=== PATIENT | male | born 1970 | race Caucasian/White ===

== ENCOUNTER 2020-03-30 10:32 | Inpatient (IN) | payer SELFPAY ==
[2020-03-30] VITALS (20 sets, daily range): BP systolic 125–167; BP diastolic 68–104; PULSE 70–116; RESP 13–24; TEMP 36.5–36.9; O2SAT 95–99; BMI 29.8
--- NOTE | 2020-03-30 10:42 | ECG_ITS ---
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 Measurements Intervals [place] Rate: 79 P: 57 IA: 124 QRS: 73 QRSD: 81 T: 21 QT: 363 QTc: 418 Interpretive Statements SINUS RHYTHM No previous ECG available for comparison Electronically Signed On 03-30-2020 21:45:54 CDT by Nick Munoz M.D. [id number]
--- NOTE | 2020-03-30 10:42 | ED_ITS ---
HPI - Chest Pain General: Chief Complaint: Chest Pain Stated Complaint: CHEST PAIN Time Seen by Provider: 03/30/20 10:36 History of Present Illness: HPI narrative: 49-year-old male patient presents to the emergency department as direct admission from [facility]. He reports developed chest pain/back pain went to the emergency department around 230 this a.m. cardiac work-up with elevated troponin 33 at the first, second 53; he reports EKGs were normal, he did receive 80 mg of Lovenox and 324 mg of aspirin. He denies cough congestion, nausea vomiting diarrhea or fever, Covid symptoms. He reports back pain, scale of 2 out of 10, reports pain is much better. 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) Associated symptoms: Reports no associated symptoms; Deny abdominal pain, diaphoresis, dyspnea, fever(s), nausea, palpitations or vomiting Treatment prior to arrival: aspirin and other (80 mg Lovenox) Review of Systems General: Reports: 10 or more systems reviewed and unremarkable except in HPI and below Const: Denies: fever(s), chills or diaphoresis Eyes: Denies: blurry vision or eye redness ENMT: Denies: throat pain, dental pain or disequilibrium Card: Denies: chest pain, palpitations or irregular heart rhythm Resp: Denies: dyspnea, productive cough, non-productive cough or wheezing GI: Denies: abdominal pain, nausea or vomiting : Denies: dysuria Musc: Reports: back pain (thoracic); Denies: neck pain, joint pain or muscle weakness Skin/Breast: Denies: rash or pruritus Neuro: Denies: headache(s), weakness in extremities or behavioral changes Omar/Lymph: Denies: easy bruising PFSH ED PFSH: Medical History (Updated 03/30/20 @ 12:04 by Kait Burnett DO) Chronic vertigo Hyperlipidemia Seasonal allergies Surgical History (Updated 03/30/20 @ 12:01 by Kait Burnett DO) History of local excision of skin lesion R shoulder Family History (Updated 03/30/20 @ 12:02 by Kait Burnett DO) Father Lung disease Secondary to asbestos exposure Mother Cancer Small cell lung cancer Social History (Updated 03/30/20 @ 12:03 by Kait Burnett DO) Smoking and tobacco status: former smoker Alcohol intake: current Alcohol intake frequency: holidays/special occasions only Substance/Drug Use: never Marital status: Physical Exam Const: COMMON NORMALS: no acute distress, patient oriented x3, healthy appearing and alert GENERAL APPEARANCE: cooperative, comfortable and well hydrated HENMT: COMMON NORMALS: normocephalic, Normal external nose present and moist oral mucous membranes HEAD & SCALP: normocephalic NOSE: Normal external nose present Eye: COMMON NORMALS: Equal, round and reactive pupils present and EOMs intact bilaterally GENERAL EYE: appearance normal, both eyes and all related structures PUPIL: Yes Equal, round and reactive pupils present Neck/C-Spine: COMMON NORMALS: full ROM and no lymphadenopathy GENERAL: Yes normal visual inspection and Yes trachea midline CERVICAL SPINE: Yes cervical ROM normal Lymph: LYMPHATIC: no lymphadenopathy noted Chest: COMMONS NORMALS: normal inspection of the chest Resp: COMMON NORMALS: normal respiratory effort and clear to auscultation bilaterally AUSCULTATION: clear to auscultation bilaterally Cardio: COMMON NORMALS: regular rhythm, S1 normal heart sound present and S2 normal heart sound present RHYTHM: regular rhythm HEART SOUNDS: S1 normal heart sound present and S2 normal heart sound present GI: COMMON NORMALS: Soft to palpation and non-tender INSPECTION: Yes normal to inspection PALPATION: Yes Soft to palpation : COMMON NORMALS: Yes no CVA tenderness BLADDER/KIDNEY EXAM: Yes no CVA tenderness Back/Pelvis: COMMON NORMALS: no CVA tenderness and thoracic and lumbar spine normal to inspection Extremity: COMMON NORMALS: normal to inspection and capillary refill normal Neuro: COMMON NORMALS: patient oriented x3 and no focal motor deficits SENSORIUM/ORIENTATION: Yes alert Psych: COMMON NORMALS: mental status grossly normal, Normal thought process present and cooperative ACTIVITY/MOTOR BEHAVIOR: Yes appropriate eye contact THOUGHT PROCESS: Normal thought process present Skin: COMMON NORMALS: no rashes or lesions noted and turgor normal GENERAL SKIN EXAM: no rashes or lesions noted and turgor normal Course ED course: 49-year-old male patient presents to the emergency department via transfer from [facility] for further evaluation of back pain/increased troponin levels. Negative Covid symptoms here in the ED. Covid screening not indicated since he does not exhibit symptoms of illness. Case discussed with Dr. Briseno. Dr. Burnett here in the ED evaluating patient for admission. Vital Signs: Vital signs: Vital Signs Temperature 97.7 F 03/30/20 14:38 Pulse Rate 77 03/30/20 14:38 Respiratory Rate 16 03/30/20 14:59 Blood Pressure 129/81 03/30/20 14:38 Pulse Oximetry 98 03/30/20 14:59 MDM - Chest Pain Lab Data: Labs: Lab Results 03/30/20 03/30/20 03/30/20 Range/Units 11:00 11:00 11:35 PT (12.1-14.9) SECO NDS INR (0.8-1.2) Sodium Cancelled 139 Potassium Cancelled 4.1 Chloride Cancelled 105 Carbon Dioxide Cancelled 24 Anion Gap Cancelled 14.1 BUN Cancelled 10 Creatinine Cancelled 0.7 GFR Calculation Cancelled 119.9 Glucose Cancelled 115 Calculated Osmolal ity Cancelled 288 Calcium Cancelled 9.3 Troponin T Gen 5 n g/L Cancelled TSH (0.27-4.20) uIU/ mL 03/30/20 03/30/20 03/30/20 Range/Units 11:35 11:35 11:35 PT 12.90 (12.1-14.9) SECO NDS INR 0.94 (0.8-1.2) Sodium Potassium Chloride Carbon Dioxide Anion Gap BUN Creatinine GFR Calculation Glucose Calculated Osmolal ity Calcium Troponin T Gen 5 n g/L 241 H* TSH 1.04 (0.27-4.20) uIU/ mL EKG Data^: EKG 1: EKG interpretation date: 03/30/20 EKG interpretation time: 10:53 Other EKG comments: Sinus rhythm, normal ECG Discharge Plan Discharge Patient Disposition: Admitted As Inpatient Admit Provider: Kait Burnett Discharge Date/Time: 03/30/20 14:34 Coding Level of Care Code ED Public Area Attendant for Chg Fwd Exam Comprehensive
--- NOTE | 2020-03-30 11:56 | PM.HP ---
Providers/Chief Complaint Chief Complaint: CHEST PAIN History of Present Illness Johan Pelayo is a 49 year old male with a past medical history of hyperlipidemia and vertigo that presented to the emergency department from an outside facility due to concern for non-ST elevation AL. Patient was seen and evaluated at the outside facility due to sudden onset of back pain that began last night about 2 AM. 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 Stated that before he went to sleep he had his pushed on his back, this improved some of his pain, he went to bed pain-free with no feelings of shortness of breath or chest pain. He stated that about 2 AM he woke up began having severe back pain between his shoulder blades, stated that it was very severe and due to the severe pain he came into the ER for further evaluation and treatment. He reports being fatigued with exertion over the past couple of months, he had chalked this up to his weight gain. He denies any chest heaviness or pressure, no palpitations. He noted no family history of any heart disease that he is aware of. Stated that he was told that he had high cholesterol in the past was on a statin, but could not tolerate the medication due to severe muscle cramps. Patient was seen and evaluated at [facility] emergency room and transferred to our facility due to non-ST elevation AL. Noted to have a delta troponin of 33. Review of Systems Const: Denies: fever(s) or chills Eyes: Denies: change in vision ENMT: Denies: nasal congestion Card: Denies: chest pain, palpitations or edema Resp: Denies: dyspnea, productive cough or hemoptysis GI: Denies: abdominal pain, nausea, vomiting, diarrhea, constipation, hematochezia or melena : Denies: dysuria or hematuria Musc: Reports: back pain; Denies: extremity pain or muscle cramps Skin/Breast: Denies: rash or new lesions Neuro: Reports: dizziness (Chronic, unchanged); Denies: headache(s) Psych: Denies: anxiety or depression Endo: Denies: polyuria or hot flashes Omar/Lymph: Denies: easy bruising or easy bleeding Medications/Allergies Home Medications Medication Instructions Recorded Confirmed Last Taken Type aspirin 81 mg PO QPM 03/30/20 03/30/20 Unknown History flaxseed oil-omega 3,6,9 1 cap PO DAILY 03/30/20 03/30/20 03/29/20 History loratadine 10 mg PO QPM 03/30/20 03/30/20 03/29/20 History meclizine 12.5 mg PO QAM 03/30/20 03/30/20 Unknown History multivit with min-folic acid 400 mcg PO DAILY 03/30/20 03/30/20 03/29/20 History [Adult Multivitamin Gummies] nqrfpgblf-CV-polnpkik-guaifen 1 cap PO QAM 03/30/20 03/30/20 03/29/20 History Allergies Allergy/AdvReac Type Severity Reaction Status Date / Time amoxicillin Allergy ADR-Itching Verified 03/30/20 11:19 PFSH Acute PFSH: Medical History (Updated 03/30/20 @ 12:04 by Kait Burnett DO) Chronic vertigo Hyperlipidemia Seasonal allergies Surgical History (Updated 03/30/20 @ 12:01 by Kait Burnett DO) History of local excision of skin lesion R shoulder Family History (Updated 03/30/20 @ 12:02 by Kait Burnett DO) Father Lung disease Secondary to asbestos exposure Mother Cancer Small cell lung cancer Social History (Updated 03/30/20 @ 12:03 by Kait Burnett DO) Smoking and tobacco status: former smoker Alcohol intake: current Alcohol intake frequency: holidays/special occasions only Substance/Drug Use: never Marital status: Supplemental PFSH Information: Reports that he quit smoking 1 year ago Vitals/I&O/Wt Last Vital Signs Temp 98.3 F 03/30/20 10:35 Pulse 87 03/30/20 10:42 Resp 16 03/30/20 10:42 BP 152/87 03/30/20 10:42 Pulse Ox 98 03/30/20 10:42 Weight last 48 hrs Weight 83.915 kg Physical Exam Const: COMMON NORMALS: patient oriented x3 and alert GENERAL APPEARANCE: cooperative ORIENTATION/CONSCIOUSNESS: Yes awake, Yes oriented to person, Yes oriented to place and Yes oriented to time HENMT: COMMON NORMALS: normocephalic and atraumatic HEAD & SCALP: normocephalic and atraumatic Eye: COMMON NORMALS: Equal, round and reactive pupils present PUPIL: Yes Equal, round and reactive pupils present Neck/C-Spine: COMMON NORMALS: supple GENERAL: Yes normal visual inspection Resp: COMMON NORMALS: normal respiratory effort and clear to auscultation bilaterally EFFORT & INSPECTION: Yes able to speak in complete sentences AUSCULTATION: clear to auscultation bilaterally, no rhonchi and no wheezes Cardio: COMMON NORMALS: regular rate, regular rhythm and No murmurs present (Cardio) RATE: regular rate RHYTHM: regular rhythm GI: COMMON NORMALS: Soft to palpation and non-tender INSPECTION: No abdominal distension AUSCULTATION: Yes normoactive bowel sounds PALPATION: Yes Soft to palpation : COMMON NORMALS: Yes no CVA tenderness BLADDER/KIDNEY EXAM: Yes no CVA tenderness Back/Pelvis: OTHER: No tenderness to palpation along the paraspinal muscles that reproduces back pain present on arrival to the ED Extremity: COMMON NORMALS: no clubbing, cyanosis or edema and no calf tenderness Neuro: COMMON NORMALS: patient oriented x3, CN's II-XII intact bilaterally, moves all extremities and no focal motor deficits SENSORIUM/ORIENTATION: Yes alert, Yes oriented to person, Yes oriented to place and Yes oriented to time SPEECH: speech normal Psych: COMMON NORMALS: mental status grossly normal and cooperative Skin: COMMON NORMALS: no rashes or lesions noted GENERAL SKIN EXAM: no rashes or lesions noted Data : 03/30/20 11:35 A&P Assessment and plan (1) NSTEMI (non-ST elevated myocardial infarction): Patient was transferred from an outside emergency department with a delta troponin of 33 Given treatment dose Lovenox, will continue Continue on aspirin Patient is intolerant to statins We will check morning lipid panel repeat EKG, will recheck here in close monitoring on telemetry with repeat 6-hour troponin Cardiology, Dr. Corey consulted. 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 But will also ensure no changes with CTA of the chest due to the severe back pain that is reported. and continue with further cardiac work up as noted above DVT ppx: Given treatment dose lovenox prior to arrival Diet: NPO COde status: Full code Attestations Medical Necessity Statement*: Hospitalization due to NSTEMI, expected stay greater than 2 midnights Coding Level of Care Code Acute Social Services Director for [facility] Fwd Exam Comprehensive Diagnoses NSTEMI (non-ST elevated myocardial infarction) I21.4 Chronic vertigo R42
--- NOTE | 2020-03-30 12:11 | CT_ITS ---
WS: [id number] CTA THORACIC TECHNIQUE: Contrast enhanced CTA of the thoracic aorta with coronal and sagittal reformatted images a nd maximum intensity projection (MIP) images. CLINICAL INFORMATION: chest pain radiating into tthe back COMPARISON: None. DLP: 1127.[address] scans at [facility] use at least one of these dose optimization techniques: automat ed exposure control; mA and/or kV adjustment per patient size (includes targeted exams where dose is matched to clinical indication); or iterative reconstruction. FINDINGS: Normal normal caliber thoracic aorta. Normal caliber thoracic aorta. No evidence of aortic dissection . Proximal main pulmonary arteries are normal. No mediastinal or hilar lymphadenopathy. Tiny esophageal hiatal hernia. No axillary lymphadenopathy. Lungs are well aerated. No acute pulmonary infiltrates. No suspicious pulmonary parenchymal abnormalities. CT/CT angio chest [id number] IMPRESSION: 1. No evidence of aortic dissection. Normal caliber thoracic aorta. 2. Proximal main pulmonary arteries are normal. 3. No acute pulmonary infiltrates. Lungs are well aerated. 4. No mediastinal or hilar lymphadenopathy. 5. Tiny esophageal hiatal hernia. Notified Juliocesar Briseno DO at 03/30/2020 1:29 PM.
[2020-03-30 12:14] LABS: Anion Gap 14.1 (5-19); Blood Urea Nitrogen 10 mg/dL (6-20); Calcium 9.3 mg/dL (8.5-10.5); Carbon Dioxide 24 mmol/L (22-29); Chloride 105 mmol/L (98-107); Glomerular Filtration Rate 119.9 mL/min (90-130); Glucose 115 mg/dL (65-115); INR 0.94 (0.8-1.2); Osmolality Calculated 288 mOsm/kg (285-295); Potassium 4.1 mmol/L (3.5-5.1); Sodium 139 mmol/L (136-145)
[2020-03-30 12:18] LABS: Troponin T (5th) Once 241 ng/L (0-15)
[2020-03-30] MEDS: morphine 4 mg/mL SDV 1 mL 2 MG IVP ×3 (12:28→20:29)
[2020-03-30] MEDS: pantoprazole DR 40 mg Tablet PO (12:28)
[2020-03-30 12:39] LABS: Thyroid Stimulating Hormone 1.04 uIU/mL (0.27-4.20)
--- NOTE | 2020-03-30 13:07 | ECG_ITS ---
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 Measurements Intervals [place] Rate: 86 P: 56 ID: 119 QRS: 72 QRSD: 88 T: 23 QT: 356 QTc: 427 Interpretive Statements SINUS RHYTHM WITH SHORT ID INTERVAL ANTEROLATERAL MYOCARDIAL INFARCTION , OF INDETERMINATE AGE [40+ ms Q WAVE IN I/aVL/V3-V6] Compared to ECG 03/30/2020 10:48:34 Short ID interval now present Myocardial infarct finding now present Electronically Signed On 03-30-2020 21:46:15 CDT by Nick Munoz M.D. [email or web address]
[2020-03-30] MEDS: iohexol 350 mg/mL 100 mL Btl IV (13:11)
--- NOTE | 2020-03-30 13:39 | P.CONIM_ITS ---
Providers/Reason For Consult Consulting Physican/Specialty*: Dr. Corey, cardiology Reason for Consult*: Non-ST elevation CT Requesting Physcian: Dr. Burnett Attending Physician: Dr. Burnett History of Present Illness History of Present Illness Johan Pelayo is a 49 year old male with past medical history of hyperlipidemia not on any medications, history of allergies who recently moved back to the area. He has chronic back pain but states that recently the pain has been getting worse. 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 However around 2 AM this morning, he presented at ER in outside facility with severe upper back pain. Pain was in intrascapular area was rated at 9/10 in intensity associated with some shortness of breath. This was different from his previous pains. He also complains of feeling fatigue but denies having any chest pain or heaviness. Denies any heart fluttering or palpitations. He denies having any family history of CAD. His EKG showed normal sinus rhythm and normal EKG with baseline troponin T of 20 and on second set at increased to about 53. He was transferred to [facility] ER for further evaluation. He denies any fever chills runny nose cough, sick contacts including COVID-19 positive patients. His third troponin was found to be 241. BUN 10, creatinine 0.7. TSH 1. CT angiogram of the chest was done which showed normal caliber thoracic aorta without any evidence of dissection. Normal pulmonary artery with no acute infiltrates tiny esophageal hiatal hernia was noted. EKG here showed sinus rhythm, normal axis with normal ST and T's. Another EKG showed normal sinus rhythm, normal axis with small Q-wave in V5 and V6, T wave inversion in V4 and V6. At the time of evaluation he continues to have upper back pain though less intense. It is graded as 3-4 over 10 in intensity. Review of Systems Const: Denies: fever(s), chills or malaise Eyes: Denies: change in vision ENMT: Denies: nasal congestion or epistaxis Card: Denies: chest pain, palpitations, edema, swelling of feet/ankles, syncope, pre-syncope or acrocyanosis Resp: Denies: dyspnea, productive cough, wheezing, stridor or hemoptysis GI: Denies: abdominal pain, nausea, vomiting, diarrhea, constipation, hematochezia or melena : Denies: dysuria or hematuria Musc: Reports: back pain; Denies: extremity pain or muscle cramps Skin/Breast: Denies: rash or new lesions Neuro: Reports: dizziness (Chronic, unchanged); Denies: headache(s) Psych: Denies: anxiety or depression Endo: Denies: polyuria or hot flashes Omar/Lymph: Denies: easy bruising or easy bleeding Meds/Allergies Home Medications and Allergies Home Medications Medication Instructions Recorded Confirmed Last Taken Type aspirin 81 mg PO QPM 03/30/20 03/30/20 Unknown History flaxseed oil-omega 3,6,9 1 cap PO DAILY 03/30/20 03/30/20 03/29/20 History loratadine 10 mg PO QPM 03/30/20 03/30/20 03/29/20 History meclizine 12.5 mg PO QAM 03/30/20 03/30/20 Unknown History multivit with min-folic acid 400 mcg PO DAILY 03/30/20 03/30/20 03/29/20 History [Adult Multivitamin Gummies] ebhhtzviw-FN-twbbfrni-guaifen 1 cap PO QAM 03/30/20 03/30/20 03/29/20 History Allergies Allergy/AdvReac Type Severity Reaction Status Date / Time amoxicillin Allergy ADR-Itching Verified 03/30/20 11:19 Current Medications Current Medications Generic Name Dose Route Start Last Admin Trade Name Freq PRN Reason Stop Dose Admin Pantoprazole Sodium 40 mg 03/30/20 12:30 03/30/20 12:28 Protonix PO 40 mg DAILY KATHRYN Administration PFSH Acute PFSH: Medical History Chronic vertigo Hyperlipidemia Seasonal allergies Surgical History History of local excision of skin lesion R shoulder Family History Father Lung disease Secondary to asbestos exposure Mother Cancer Small cell lung cancer Social History Smoking and tobacco status: former smoker Alcohol intake: current Alcohol intake frequency: holidays/special occasions only Substance/Drug Use: never Marital status: Vitals/I&O/Wt Last Vital Signs Temp 98.3 F 03/30/20 10:35 Pulse 116 H 03/30/20 12:31 Resp 14 03/30/20 12:31 BP 165/104 03/30/20 12:31 Pulse Ox 98 03/30/20 12:31 Weight last 48 hrs Weight 185 lb Physical Exam Const: COMMON NORMALS: no acute distress, average body habitus, patient oriented x3, alert and well nourished GENERAL APPEARANCE: cooperative, comfortable, well kempt and well developed ORIENTATION/CONSCIOUSNESS: Yes oriented to person, Yes oriented to place and Yes oriented to time HENMT: COMMON NORMALS: normocephalic, atraumatic, hearing grossly normal bilaterally, external ears normal, Normal external nose present and oropharynx normal HEAD & SCALP: normocephalic and atraumatic FACE & SINUS: face symmetric NOSE: Normal external nose present EXTERNAL EAR: Yes external ears normal MOUTH: Normal oral and palatal mucosa present Eye: COMMON NORMALS: Equal, round and reactive pupils present, EOMs intact bilaterally and conjunctivae normal ALIGNMENT: Yes alignment normal CONJUNCTIVA: Yes conjunctivae normal SCLERA: sclerae normal PUPIL: Yes Equal, round and reactive pupils present Neck/C-Spine: COMMON NORMALS: no lymphadenopathy, supple, no JVD and Thyroid normal; negative for No carotid bruits GENERAL: Yes trachea midline THYROID: Thyroid normal Lymph: LYMPHATIC: No no lymphadenopathy noted Chest: COMMONS NORMALS: normal inspection of the chest CHEST: Yes Symmetrical chest wall rise and No tenderness Resp: COMMON NORMALS: normal respiratory effort, No use of accessory muscles and clear to auscultation bilaterally EFFORT & INSPECTION: Yes able to speak in complete sentences and No labored AUSCULTATION: clear to auscultation bilaterally, no crackles, no rales, no rhonchi and no wheezes Cardio: COMMON NORMALS: no JVD, regular rate, regular rhythm, S1 normal heart sound present, S2 normal heart sound present and Peripheral pulses 2+ throughout; negative for No gallops present (Cardio) and negative for No clicks present (Cardio) JUGULAR VENOUS DISTENTION: no JVD PALPATION: normal PMI, no heave, no palpable S3, no palpable S4 and no thrill RATE: regular rate RHYTHM: regular rhythm HEART SOUNDS: S1 normal heart sound present, S2 normal heart sound present, no gallops and no murmurs BRUITS: no carotid bruits PERIPHERAL PULSES: Peripheral pulses 2+ throughout GI: COMMON NORMALS: Normal to inspection, nondistended, normoactive bowel sounds present, Soft to palpation and non-tender PALPATION: Yes Soft to palpation PERCUSSION: tympanic to percussion RECTAL EXAM: Yes deferred Back/Pelvis: LUMBAR SPINE/LOWER BACK: Yes normal to inspection Extremity: COMMON NORMALS: no clubbing, cyanosis or edema GENERAL: No clubbing, No cyanosis, No edema and No pallor Neuro: COMMON NORMALS: patient oriented x3 and no focal motor deficits SENSORIUM/ORIENTATION: Yes alert, Yes oriented to person, Yes oriented to place and Yes oriented to time CRANIAL NERVES: Yes CN normal except as noted Psych: COMMON NORMALS: Normal thought process present APPEARANCE: Yes well kempt MOOD & AFFECT: Yes euthymic mood THOUGHT PROCESS: Normal thought process present THOUGHT CONTENT: Yes Normal thought content present ATTENTION/CONCENTRATION: Yes attention grossly intact MEMORY/COGNITION: Yes memory grossly intact INSIGHT: Good insight present (Psych) JUDGEMENT: Good judgement present (Psych) Skin: COMMON NORMALS: no rashes or lesions noted and no wounds GENERAL SKIN EXAM: no rashes or lesions noted A&P Assessment and plan (1) NSTEMI (non-ST elevated myocardial infarction): Continue with aspirin, therapeutic Lovenox, metoprolol. -Patient has been loaded with Plavix 600 mg (as he does not have insurance). Co ntinue Plavix 75 mg. -Start on low-dose statin given history of statin intolerance. -Follow-up on echocardiogram. -His pain is not typical anginal. It is more upper back pain rather than chest discomfort. CAD risk factors of obesity, hypertension, untreated hyperlipidemia and history of smoking. -There are some ST T wave changes noted on EKG in lateral leads. -I will set him up for coronary angiogram tomorrow. -This was discussed with patient and his . They are agreeable with the same. Status: Acute (2) Hyperlipidemia: Status: Acute Qualifiers: Hyperlipidemia type: mixed hyperlipidemia Qualified Code(s): E78.2 - Mixed hyperlipidemia (3) Elevated blood pressure reading: No known history of hypertension not on any medications. Status: Acute Additional A&P Information History of statin intolerance: History of smoking: At least [id number] history of smoking, quit about a year ago. Chronic back pain Thank you for allowing me to participate in patient's care. Please feel free to call with questions or concerns. Coding Level of Care Code Acute Emergency Nurse for Nona Fwrhett History Comprehensive Exam Comprehensive Medical Decision Making High Complexity Diagnoses NSTEMI (non-ST elevated myocardial infarction) I21.4 Hyperlipidemia E78.2 Hyperlipidemia type: mixed hyperlipidemia Elevated blood pressure reading R03.0 Time Spent (min) 45
[2020-03-30] MEDS: metoprolol tartrate 25 mg Tablet PO (14:05)
[2020-03-30] MEDS: clopidogrel 300 mg Tablet 600 MG PO (14:59)
--- NOTE | 2020-03-30 16:40 | PC.NURSE ---
Phone calls placed to Dr. Burnett and Dr. Corey regarding patient's continuing back pain. Also clarified order for IVF as ordered by ER physician. Requested diet orders for patient's dinner and confirmed whether patient will be going to heart laboratory scientist today or tomorrow.
--- NOTE | 2020-03-30 17:11 | USCV_ITS ---
Johan Pelayo Age: 49 Gender: M : 1970 Exam Date: 03/30/2020 18:31 Ordering Phys: Gwendolyn Corey MD ([email or web address]) Technologist: Ike Emmanuel Exam Location: [facility] [place] Indication: CHEST PAIN BP: 120 / 81 HR: 76 Rhythm: Sinus Technical Quality: Fair MEASUREMENTS (Male / Female) Normal Values 2D ECHO LV Diastolic Diameter PLAX 3.7 cm 4.2 - 5.9 / 3.9 - 5.3 cm LV Systolic Diameter PLAX 2.3 cm IVS Diastolic Thickness 1.1 cm 0.6 - 1.0 / 0.6 - 0.9 cm IVS Systolic Thickness 1.8 cm LVPW Diastolic Thickness 1.1 cm 0.6 - 1.0 / 0.6 - 0.9 cm LVPW Systolic Thickness 1.3 cm LVOT Diameter 2.4 cm LV Ejection Fraction 2D Teich 71.3 % LV Ejection Fraction MOD 2C 78.3 % LV Ejection Fraction 2C AL 78.3 % LA Diameter 3.8 cm Aorta at Sinotubular Diameter 0.9 cm M-MODE LV Diastolic Diameter MM 4.5 cm 4.2 - 5.9 / 3.9 - 5.3 cm LV Systolic Diameter MM 2.6 cm LV Ejection Fraction MM Teich 72.7 % IVS Diastolic Thickness MM 1.2 cm 0.6 - 1.0 / 0.6 - 0.9 cm IVS Systolic Thickness MM 1.6 cm LVPW Diastolic Thickness MM 1.2 cm 0.6 - 1.0 / 0.6 - 0.9 cm LVPW Systolic Thickness MM 2.0 cm RV Diastolic Diameter MM 1.6 cm Aortic Annulus Diameter 2.7 cm LA Ao Ratio MM 1.6 MV E Point Septal Separation 0.6 cm DOPPLER AV Peak Velocity 119.0 cm/s LVOT Peak Velocity 99.0 cm/s AV Area Cont Eq vti 4.5 cm squared AV Area Cont Eq pk 3.8 cm squared MV Area PHT 5.0 cm squared Mitral E to A Ratio 1.0 MV E' Velocity 33.0 cm/s Mitral E to MV E' Ratio 5.9 Mitral E to LV E' Lateral Ratio 4.9 Mitral E to LV E' Septal Ratio 7.7 TR Peak Velocity 141.7 cm/s TR Peak Gradient 8.0 mmHg Right Atrial Pressure 3.0 mmHg Pulmonary Artery Systolic Pressu 11.0 mmHg FINDINGS Left Ventricle Normal left ventricular size, systolic function and wall thickness, with no regional wall motion abnormalities. Left ventricular ejection fraction is estimated at 65 %. Normal diastolic function. Right Ventricle Normal right ventricular size and systolic function. Normal RVSP 11 mmHg. Right Atrium Normal right atrial size. Left Atrium Normal left atrial size. Mitral Valve Mildly thickened mitral valve. No mitral valve stenosis. Aortic Valve Aortic valve not well visualized. No aortic valve stenosis. No aortic valve regurgitation. Tricuspid Valve Tricuspid valve not well visualized. Pulmonic Valve Structurally normal pulmonic valve. No pulmonary valve stenosis. No pulmonary valve regurgitation. Pericardium No pericardial effusion. Aorta Normal size aortic root and proximal ascending aorta. CONCLUSIONS 1. Normal left ventricular size, systolic function and wall thickness, with no regional wall motion abnormalities. Left ventricular ejection fraction is estimated at 65 %. Normal diastolic function. 2. Normal right ventricular size and systolic function. Normal RVSP 11 mmHg. 3. No pericardial effusion. 4. No prior similar studies to compare. Gwendolyn Corey MD (Electronically Signed) Final Date: 30 March 2020 19:00 S
[2020-03-30] MEDS: nitroglycerin 1 gm/inch oint Pkt 1 INCH TOPICAL (17:32)
[2020-03-30] MEDS: aspirin 81 mg EC Tablet PO (17:33)
[2020-03-30] MEDS: loratadine 10 mg Tablet PO (17:33)
[2020-03-30 18:25] LABS: NT Pro B Type Natriuretic Pept 37 pg/mL (0-125)
--- NOTE | 2020-03-30 19:30 | PC.NURSE ---
Rounding: Patient resting in bed watching TV. Patient discussed procedure for tomorrow and NPO after midnight. Patient is alert and oriented.
[2020-03-30] MEDS: enoxaparin 80 mg/0.8 mL Syringe SUBCUT (20:30)
--- NOTE | 2020-03-30 20:45 | PC.NURSE ---
Doctor at bedside Barrett discussing POC at this time. Discussing elevated troponin levels and possible angiogram procedure for tomorrow, to check for blockages. Doctor discussing risks and benefits of procedure, patient gave informed consent/permission for treatment.
--- NOTE | 2020-03-30 21:00 | PC.NURSE ---
Patient did not want his atorvastatin due to taking it in the past and it causing full body pain. Dr. Rueda updated.
[2020-03-31] VITALS (33 sets, daily range): BP systolic 100–141; BP diastolic 51–81; PULSE 74–97; RESP 3–25; TEMP 36.4–37.4; O2SAT 94–97; BMI 31.8
[2020-03-31] MEDS: nitroglycerin 1 gm/inch oint Pkt 1 INCH TOPICAL ×2 (00:33→04:50)
[2020-03-31] MEDS: morphine 4 mg/mL SDV 1 mL 2 MG IVP (00:33)
--- NOTE | 2020-03-31 00:58 | PC.NURSE ---
Dr. Rueda called regarding patients blood pressure 107/66. had nitro paste and 25mg of metoprolol due. Orders to hold 25mg of metoprolol at this time and to give nitro paste if patient is having chest pain. read back verbal order.
--- NOTE | 2020-03-31 01:43 | PC.NURSE ---
Called Dr. Rueda regarding patient stated allergy to atorvastatin and listed on patients record. Orders to Discontinue it off his EMAR. read back verbal order.
[2020-03-31 05:34] LABS: Basophils # 0.1 10^3/uL (0.0-0.1); Basophils % 0.6 %; Eosinophils # 0.2 10^3/uL (0.0-0.8); Eosinophils % 1.6 %; Hemoglobin 14.6 g/dL (11.7-16.6); Lymphocytes # 5.1 10^3/uL (0.8-4.8); Lymphocytes % 43.1 %; Mean Corpuscular Hemoglobin 30.9 pg (28.0-34.0); Mean Corpuscular Volume 91.1 fL (80-94); Mean Platelet Volume 9.7 fL (7.4-10.4); Monocytes % 8.7 %; Neutrophils # 5.42 10^3/uL (1.8-7.7); Neutrophils % 45.7 %; Nucleated Red Blood Cells % 0 %; Platelet Count 224 10^3/cmm (130-400); Red Blood Count 4.72 10^6/uL (4.1-5.3); Red Cell Distribution Width 12.9 % (12.1-15.1); White Blood Count 11.8 10^3/uL (4.0-10.0)
[2020-03-31 05:54] LABS: Blood Urea Nitrogen 15 mg/dL (6-20); Calcium 9.2 mg/dL (8.5-10.5); Carbon Dioxide 23 mmol/L (22-29); Chloride 102 mmol/L (98-107); Glomerular Filtration Rate 89.7 mL/min (90-130); Glucose 102 mg/dL (65-115); Osmolality Calculated 281 mOsm/kg (285-295); Sodium 135 mmol/L (136-145)
[2020-03-31 06:11] LABS: Anion Gap 13.8 (5-19); Potassium 3.8 mmol/L (3.5-5.1)
[2020-03-31 06:44] LABS: Troponin T (5th) Once 1102 ng/L (0-15)
[2020-03-31 06:50] LABS: Estmated Average Glucose 108; Hemoglobin A1C 5.4 % (4.0-6.0)
[2020-03-31 06:57] LABS: Chol HDL Ratio 6.77 mg/dL (1.0-5.00); Cholesterol 210 mg/dL (0-200); HDL Cholesterol 31 mg/dL (60-100); LDL Cholesterol Calculated 136 mg/dL (50-129); LDL HDL Ratio 4.39 RATIO (0.00-3.22); Triglycerides 214 mg/dL (0-150)
--- NOTE | 2020-03-31 07:35 | XACV_ITS ---
Exam Room: [facility] Ht: 168 cm Wt: 89 kg BSA: 2.07 m2 Gender: Male : 1970 Any Known Allergies: Other Exam Priority: Routine Procedure(s): Procedure Description: Diagnostic procedure Procedure Description: PCI procedure Procedure Description: Left Heart Catheterization Procedure Description: Drug Eluting Coronary Stent Procedure Description: PTCA Procedure Description: Coronary Angiography Diagnostic Cath Status: Urgent Diagnostic Findings * Angiography shows a co-dominant dominant system. * Left main patent. * Left anterior descending artery is a large vessel which gives off a small first diagonal which has contrast staining could be the culprit vessel second diagonal is medium to large sized vessel which has a proximal 50 to 60% stenosis. Mid LAD is patent distally it is patent with WENDI-3 flow. * Left Circumflex artery large codominant vessel has a mid 60 to 70% stenosis with WENDI-3 flow. First OM appears to be occluded chronically with distal left to left collaterals and reformation of this vessel. The artery gives off left PDA which is patent but absent disease. * Right coronary arterycodominant vessel has a proximal 90% stenosis mid and distal RCA are patent with no obstructive disease. PCI Status: Urgent PCI Indication: NSTE - ACS Interventional Findings * Technical intervention. * After completion of diagnostic imaging, a JR 3.5 guide was placed in the right coronary artery. IV heparin was used to maintain the ACT over 300. Short Run throughwire was placed across the lesion involving the right coronary artery in place distally this was followed by predilation involving the lesion with a 2.0 x 12 balloon following which a 3.0 x 12 m stent was deployed at the site of stenosis at 14 ernestine for 25 seconds. After deployment of the stent, postdilated with 3.5 x 8 NC balloon the proximal mid and distal segment of the stent. Final images revealed less than 0% stenosis WENDI-3 flow. IVUS was not available. Decision for PCI with Surgical Consult: Yes Conclusions 1. 1. Significant multivessel coronary disease as described above. 2. 2. Severe obstructive disease involving the right coronary artery with successful stent placement RUPA. 3. 3. Residual disease along the left LCX artery for staged catheter intervention. 4. 4. Chronic total occlusion involving the first obtuse marginal marginal branch. 5. 5. Small vessel disease involving the first diagonal artery. Recommendations * 1. Status post PCI care with aspirin for life, Brilinta 90 p.o. twice daily for 12 months. * 2. Staged FFR evaluation of the left circumflex artery for possible catheter-based intervention. * 3. Risk factor modification and cardiac rehab referral. Pressures Phase:Rest AO : 125 / 78 ( 98 ) @ 4:10:00 AM 170 / 64 ( 46 ) @ 4:18:00 AM 97 / 75 ( 84 ) @ 4:24:00 AM 111 / 41 ( 75 ) @ 4:29:00 AM Clinical Evaluation EBL: 5mL-10mL Procedural Details Procedure Consent Obtained. Pre-Procedure Time Out. Identified patient by full name and date of as verbalized by the patient/guarantor. Does the consent match the physician's order: Yes. Accurate & Complete Informed Consent: Yes. Inpatient/Outpatient History & Physical on Chart: Yes. If H&P is completed, is and addenduem needed: N/A; If yes, is the addendum complete: N/A. Visualize and Verify Site with Patient/Guarantor: N/A. Relevant Radiology Images available: Yes. Pre-op teaching completed and patient verbalized understanding. The risks, benefits, and alternatives of sedation and/or procedure were discussed by physician. The patient agrees to continue. Procedure started. Correct patient, site and procedure confirmed by cath team. PERRLA. Strong, equal hand shredded filler hopper feeder bilaterally. Lungs clear x 5 lobes. IV Site on Arrival: 20 gauge in the right hand. IV Site on Arrival: 20 gauge in the left anticubital. IV Fluids: 0.9% NaCl at KVO. 0 mL infused prior to cardiac cath lab technologist. Pre Procedural Pulses: bilateral dorsalis pedis was 2+. Pre Procedural Pulses: bilateral posterior tibial was 2+. Pre Procedural Pulses: bilateral radial was 2+. Oxygen started at 2liters/min via nasal canula. bilateral groins was prepped with chloroprep then draped in the usual sterile fashion. Physician notified. Dr. Barrett Silva performing physician. Baseline sample Acquired. HR: 94 BPM. Physician arrived. Equipment: 6F - Femoral. Cardiac Cath Pack. ACIST Manifold Kit Model BT 2000. Heparinized Saline (2 units/mL), 1000 mL bag. Kit, Micropuncture. Physician scrubbed in. Immediate Pre-Procedure Time Out. Correct Patient: Yes; Correct Procedure: Yes; Correct Site: Yes; Correct Patient Position: Yes; Correct Supplies: Yes; Dried Flammable Prep: Yes; Blood Products Available: No;. Lidocaine 1% infiltrated to the right groin. A 6 swiss JL4 catheter in over wire. Multiple views taken of left coronary artery. Catheter out. A 6 swiss JR4 catheter in over wire. Multiple views taken of right coronary artery. Catheter out. Inventory is TR 180cm Runthrough NS extra floppy 0.014 wire. 6 swiss JR 3.5 guide catheter was inserted over the wire. Runthrough guidewire was advanced through the guide catheter to lesion in the prox RCA. Inflation number : 1 A AB MINI TREK 2.00X12 RX BALLOON was prepped and advanced across the Prox RCA , then inflated to 8 ERNESTINE for 0:14 seconds. Inflation number: 2 The AB MINI TREK 2.00X12 RX BALLOON was reinflated across the Prox RCA, to 12 ERNESTINE for 0:17 seconds. Balloon out. Inflation Number : 3 A DON Watson CRISSY 3.0X12 RUPA -Lot Number# [id number] exp 12-11-2021 was prepped and advanced across the Prox RCA. The stent was deployed at 12 ERNESTINE for 0:25 seconds. Stent balloon out over wire. Results checked. Inflation number : 4 A DON JOHNSON EUPHORA RX [id number] BALLOON was prepped and advanced across the Prox RCA , then inflated to 12 ERNESTINE for 0:14 seconds. Inflation number: 5 The MDNusrat JOHNSON EUPHORA RX [id number] BALLOON was reinflated across the Prox RCA, to 12 ERNESTINE for 0:15 seconds. Balloon out. ACT drawn. Results 187 seconds. Therapeutic limits - pre-heparin administration 90-150 seconds and monitoring heparin during a vascular procedure >250 seconds. Results checked. Wire out. Guide catheter out. A Suture was successful obtaining hemostatsis at the Right Femoral artery insertion site. Sheath(s) sutured into position with 2-0 silk and sterile 4x4's and Op-site applied over the site. No oozing or signs and symptoms of hematoma noted. PERRLA. Strong, equal hand shredded filler hopper feeder bilaterally. No VTE prophylaxis required. Fluoro: 9:00. Contrast type used: Omnipaque 300 mgI/mL, 500 mL bottle. [id number]. Post-op diagnosis: NSTEMI. Complications: none. Estimated blood loss: 5mL-10mL. ACT drawn. Results 326 seconds. Therapeutic limits - pre-heparin administration 90-150 seconds and monitoring heparin during a vascular procedure >250 seconds. Medication's Wasted: Heparin = 3000 units. Medication's Wasted: Lidocaine 1% = 18 mL. Medication's Wasted: Other = versed 1 mg. Medication's Wasted: Other = fentanyl 50 mcg. Total IV fluids: 300 mL. PCI Indication: NSTE. Procedure completed. [facility] Clinical Fraility Score: 4: Vulnerable. 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 Chest Pain Symptom Assessment: Atypical Angina. Cardiovascular Instability: No. Patient transferred by bed to CPRU. Vital chart was stopped. Access Site Site: Right Femoral artery Sheath Size: 6 Fr Hemostasis Method: Suture Hemostasis Success: Successful Procedure Medications Start: 9:02 AM Stop: 9:02 AM Medication: Versed Amount: 1 mg Route: I.V. Start: 9:02 AM Stop: 9:02 AM Medication: Fentanyl Amount: 50 mcg Route: I.V. Start: 9:19 AM Stop: 9:19 AM Medication: Heparin Amount: 7000 units Route: I.V. Start: 9:21 AM Stop: 9: AM Medication: 0.9% Saline Amount: 200 ml Route: I.V. bolus Start: 9:34 AM Stop: 9:34 AM Medication: 0.9% Saline Amount: 125 ml/hr Route: I.V. drip Start: 9:37 AM Stop: 9:37 AM Medication: Brilinta Amount: 180 mg Route: P.O. Start: 9:37 AM Stop: 9:37 AM Medication: Heparin Amount: 4000 units Route: I.V. I, the attending physician, have reviewed and verified all procedure medications. Yes, all medications given per verbal order History/Risk Factors Hypertension: Yes Dyslipidemia: Yes Peripheral Arterial Disease (PAD): No Myocardial Infarction ([place]): No Obesity: No Renal Disease: No Tobacco Use: Former Prior Interventions PCI: No CABG: No Valve Surgery: No Report Signatures Finalized by Mark Silva MD on 03/31/2020 10:34 AM
--- NOTE | 2020-03-31 08:00 | P.PN_ITS ---
Subjective Subjective: Interval history: Patient awake in bed at time of exam this morning. He denied any chest pain or back pain, stated that his breathing was feeling normal this morning. He stated that he is just anxious about the procedure but denies any concerns or questions at this time. Vitals/I&O/Wt Last Vital Signs Temp 98.2 F 03/31/20 06:50 Pulse 82 03/31/20 06:50 Resp 21 H 03/31/20 06:50 BP 117/63 03/31/20 06:50 Pulse Ox 97 03/31/20 06:50 03/30/20 03/31/20 03/31/20 22:59 06:59 14:59 Intake Total 480 / 480 400 / 880 Balance 480 / 480 400 / 880 Weight last 48 hrs Weight 89.414 kg Weight 83.915 kg Physical Exam Const: COMMON NORMALS: patient oriented x3 and alert GENERAL APPEARANCE: cooperative ORIENTATION/CONSCIOUSNESS: Yes awake, Yes oriented to person, Yes oriented to place and Yes oriented to time HENMT: COMMON NORMALS: normocephalic and atraumatic HEAD & SCALP: normocephalic and atraumatic Eye: COMMON NORMALS: Equal, round and reactive pupils present PUPIL: Yes Equal, round and reactive pupils present Neck/C-Spine: COMMON NORMALS: supple GENERAL: Yes normal visual inspection Resp: COMMON NORMALS: normal respiratory effort and clear to auscultation bilaterally EFFORT & INSPECTION: Yes able to speak in complete sentences A USCULTATION: clear to auscultation bilaterally, no rhonchi and no wheezes Cardio: COMMON NORMALS: regular rate, regular rhythm and No murmurs present (Cardio) RATE: regular rate RHYTHM: regular rhythm GI: COMMON NORMALS: non-tender Extremity: COMMON NORMALS: no clubbing, cyanosis or edema and no calf tenderness Neuro: COMMON NORMALS: patient oriented x3, CN's II-XII intact bilaterally, moves all extremities and no focal motor deficits SENSORIUM/ORIENTATION: Yes alert, Yes oriented to person, Yes oriented to place and Yes oriented to time SPEECH: speech normal Psych: COMMON NORMALS: mental status grossly normal and cooperative Data : 03/31/20 04:47 03/31/20 04:47 A&P Assessment and plan (1) NSTEMI (non-ST elevated myocardial infarction): Patient was transferred from an outside emergency department with a delta troponin of 33, has since climbed greater than 1000 Started on metoprolol, aspirin, low-dose statin due to history of statin intolerance, Nitropaste, Plavix, treatment dose Lovenox Cardiology, Dr. 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
[2020-03-31 08:35] LABS: SARS Covid-2 Antigen Negative (Negative)
--- NOTE | 2020-03-31 09:35 | PC.CHAP ---
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 visit [] Patient/Family/Request visit [] Outpatient visit [] Follow-up visit [] Physician referral [] Code/Alert [x] Routine visit [] Staff referral [] Actively dying [] Patient sleeping [] Family support [] [] Out of room [] Palliative care [] [] Receiving care in room [] Pre-surgical visit [] Trauma [] Long length of stay [] ICU visit [] Other: Relational/Emotional Strength [] Patient feels connected with others/family/visitors/staff [] Distress [] Loneliness/isolation [] Abandonment Spirituality of Patient [] Person of Marianne [] Attends Scientology of their Marianne [] Believes in Prayer [] Reads Bible or Anglican materials [] There are Spiritual issues to be addressed Disability Services Coordinator Interventions [x] Prayer [x] Active listening [x] Non-anxious presence [x] Spiritual/emotional support [] Crisis/trauma care [] Spiritual counseling [] Bereavement support [] Provided bereavement packet [] Provided Bible/devotional materials [] Provided toy/stuffed animal, coloring book to patient or family member [] Provided Communion [] Anointing/Uriah [] Salvation [x] Completed spiritual assessment [] Other: Impact on Illness or Injury [] Angry [] Fearful [] Anxious [] Often cries [] Exhaustion [] Unable to work [] Unable to attend hoahaoism [] Unable to walk/stand [] Unable to read [] Unable to drive [] Unable to eat/drink [] Unable to sleep [] Unable to be with family [] Patient intubated [] Other: Summary patient preparing for testing today.. addressing heart issues Time spent with patient 10 min
[2020-03-31 13:50] LABS: Partial Thromboplastin Time > 250.0 SECONDS (23.9-36.7)
--- NOTE | 2020-03-31 13:53 | PC.NURSE ---
DR herrera notified of PTT results of > 250 instructions to order another PTT to be drawn at [address] herrera about concerns that patient may be forming a hematoma Dr herrera to come look at site.
--- NOTE | 2020-03-31 13:55 | PC.NURSE ---
1245 DR taylor at bedside to check on patient Dr taylor notified of possible hematoma formation no new instructions at this time
[2020-03-31 15:33] LABS: Partial Thromboplastin Time 57.6 SECONDS (23.9-36.7)
--- NOTE | 2020-03-31 17:21 | P.PN_ITS ---
Subjective Subjective: Interval history: Patient underwent coronary angiogram via right femoral access today. He underwent drug-eluting stent placement to RCA. Small diagonal was thought to be the culprit vessel but was too small to intervene. Medications: Reviewed: Yes Medication Review Details: Current Medications Acetaminophen (Tylenol) 650 mg PO Q6H PRN PRN Reason: Mild/Mod Pain Or Temp >/= 101 Al Hydrox/Mg Hydrox/Simethicone (Maalox) 30 ml PO Q15M PRN PRN Reason: INDIGESTION Alprazolam (Xanax) 0.25 mg PO TID PRN PRN Reason: ANXIETY Aspirin (Aspirin Ec) 81 mg PO DAILY [facility] Atropine Sulfate (Atropine) 0.5 mg IVP PRN PRN PRN Reason: Symptomatic bradycardia Lisinopril (Prinivil) 5 mg PO DAILY [facility] Loratadine (Claritin) 10 mg PO QPM [facility] Last Admin: 03/30/20 17:33 Dose: 10 mg Documented by: Magnesium Hydroxide (Milk Of Magnesia) 30 ml PO DAILY PRN PRN Reason: CONSTIPATION Meclizine HCl (Antivert) 12.5 mg PO QAM PRN PRN Reason: NAUSEA/MOTION SICKNESS Metoprolol Tartrate (Lopressor) 25 mg PO Q12H [facility] Last Admin: 03/31/20 01:25 Dose: Not Given Documented by: Morphine Sulfate (Morphine) 2 mg IVP Q4H PRN PRN Reason: SEVERE PAIN Last Admin: 03/31/20 00:33 Dose: 2 mg Documented by: Naloxone HCl (Narcan) 0.1 mg IVP Q2M PRN PRN Reason: OPIATERV Nitroglycerin (Nitro-Bid) 1 inch TOPICAL Q6H [facility] Last Admin: 03/31/20 04:50 Dose: 1 inch Documented by: Nitroglycerin (Nitrostat) 0.4 mg SUBLINGUAL Q5M PRN PRN Reason: CHEST PAIN Ondansetron HCl (Zofran) 4 mg IVP Q8H PRN PRN Reason: vomiting, or N/V if npo Pantoprazole Sodium (Protonix) 40 mg PO DAILY [facility] Last Admin: 03/31/20 11:06 Dose: Not Given Documented by: Temazepam (Restoril) 15 mg PO BEDTIME PRN PRN Reason: INSOMNIA Ticagrelor (Brilinta) 90 mg PO BID [facility] Vitals/I&O/Wt Last Vital Signs Temp 98.2 F 03/31/20 06:50 Pulse 91 03/31/20 16:45 Resp 22 H 03/31/20 16:45 BP 117/79 03/31/20 16:45 Pulse Ox 95 03/31/20 16:45 03/31/20 03/31/20 03/31/20 06:59 14:59 22:59 Intake Total 400 / 880 240 / 240 Output Total 500 / 500 Balance 400 / 880 240 / 240 -500 / -260 Weight last 48 hrs Weight 197 lb 2 oz Weight 185 lb Physical Exam Const: COMMON NORMALS: no acute distress, average body habitus, patient oriented x3, alert and well nourished GENERAL APPEARANCE: cooperative, comfortable, well kempt and well developed ORIENTATION/CONSCIOUSNESS: Yes oriented to person, Yes oriented to place and Yes oriented to time HENMT: COMMON NORMALS: normocephalic, atraumatic, hearing grossly normal bilaterally, external ears normal, Normal external nose present and oropharynx normal HEAD & SCALP: normocephalic and atraumatic FACE & SINUS: face symmetric NOSE: Normal external nose present EXTERNAL EAR: Yes external ears normal MOUTH: Normal oral and palatal mucosa present Eye: COMMON NORMALS: Equal, round and reactive pupils present, EOMs intact bilaterally and conjunctivae normal ALIGNMENT: Yes alignment normal CONJUNCTIVA: Yes conjunctivae normal SCLERA: sclerae normal PUPIL: Yes Equal, round and reactive pupils present Neck/C-Spine: COMMON NORMALS: no lymphadenopathy, supple, no JVD and Thyroid normal; negative for No carotid bruits GENERAL: Yes trachea midline THYROID: Thyroid normal Lymph: LYMPHATIC: No no lymphadenopathy noted Chest: COMMONS NORMALS: normal inspection of the chest CHEST: Yes Symmetrical chest wall rise and No tenderness Resp: COMMON NORMALS: normal respiratory effort, No use of accessory muscles and clear to auscultation bilaterally EFFORT & INSPECTION: Yes able to speak in complete sentences and No labored AUSCULTATION: clear to auscultation bilaterally, no crackles, no rales, no rhonchi and no wheezes Cardio: COMMON NORMALS: no JVD, regular rate, regular rhythm, S1 normal heart sound present, S2 normal heart sound present and Peripheral pulses 2+ throughout; negative for No gallops present (Cardio) and negative for No clicks present (Cardio) JUGULAR VENOUS DISTENTION: no JVD PALPATION: normal PMI, no heave, no palpable S3, no palpable S4 and no thrill RATE: regular rate RHYTHM: regular rhythm HEART SOUNDS: S1 normal heart sound present, S2 normal heart sound present, no gallops and no murmurs BRUITS: no carotid bruits PERIPHERAL PULSES: Peripheral pulses 2+ throughout GI: COMMON NORMALS: Normal to inspection, nondistended, normoactive bowel sounds present, Soft to palpation and non-tender PALPATION: Yes Soft to palpation PERCUSSION: tympanic to percussion RECTAL EXAM: Yes deferred Back/Pelvis: LUMBAR SPINE/LOWER BACK: Yes normal to inspection Extremity: COMMON NORMALS: no clubbing, cyanosis or edema GENERAL: No clubbing, No cyanosis, No edema and No pallor Neuro: COMMON NORMALS: patient oriented x3 and no focal motor deficits SENSORIUM/ORIENTATION: Yes alert, Yes oriented to person, Yes oriented to place and Yes oriented to time CRANIAL NERVES: Yes CN normal except as noted Psych: COMMON NORMALS: Normal thought process present APPEARANCE: Yes well kempt MOOD & AFFECT: Yes euthymic mood THOUGHT PROCESS: Normal thought process present THOUGHT CONTENT: Yes Normal thought content present ATTENTION/CONCENTRATION: Yes attention grossly intact MEMORY/COGNITION: Yes memory grossly intact INSIGHT: Good insight present (Psych) JUDGEMENT: Good judgement present (Psych) Skin: COMMON NORMALS: no rashes or lesions noted and no wounds GENERAL SKIN EXAM: no rashes or lesions noted Data : 03/31/20 04:47 03/31/20 04:47 Attestation for Other Data: I personally reviewed and interpreted the following: Other data: Coronary angiogram 31 March 2020 Diagnostic Cath Status: Urgent Diagnostic Findings * Angiography shows a co-dominant dominant system. * Left main patent. * Left anterior descending artery is a large vessel which gives off a small first diagonal which has contrast staining could be the culprit vessel second diagonal is medium to large sized vessel which has a proximal 50 to 60% stenosis. Mid LAD is patent distally it is patent with WENDI-3 flow. * Left Circumflex artery large codominant vessel has a mid 60 to 70% stenosis with WENDI-3 flow. First OM appears to be occluded chronically with distal left to left collaterals and reformation of this vessel. The artery gives off left PDA which is patent but absent disease. * Right coronary artery codominant vessel has a proximal 90% stenosis mid and distal RCA are patent with no obstructive disease. PCI Status: Urgent PCI Indication: NSTE - ACS Interventional Findings * Technical intervention. * After completion of diagnostic imaging, a JR 3.5 guide was placed in the right coronary artery. IV heparin was used to maintain the ACT over 300. Short Run throughwire was placed across the lesion involving the right coronary artery in place distally this was followed by predilation involving the lesion with a 2.0 x 12 balloon following which a 3.0 x 12 m stent was deployed at the site of stenosis at 14 jose for 25 seconds. After deployment of the stent, postdilated with 3.5 x 8 NC balloon the proximal mid and distal segment of the stent. Final images revealed less than 0% stenosis WENDI-3 flow. IVUS was not available. Decision for PCI with Surgical Consult: Yes Conclusions 1. 1. Significant multivessel coronary disease as described above. 2. 2. Severe obstructive disease involving the right coronary artery with successful stent placement RUPA. 3. 3. Residual disease along the left LCX artery for staged catheter intervention. 4. 4. Chronic total occlusion involving the first obtuse marginal marginal branch. 5. 5. Small vessel disease involving the first diagonal artery. Recommendations * 1. Status post PCI care with aspirin for life, Brilinta 90 p.o. twice daily for 12 months. * 2. Staged FFR evaluation of the left circumflex artery for possible catheter-based intervention. * 3. Risk factor modification and cardiac rehab referral. A&P Assessment and plan (1) NSTEMI (non-ST elevated myocardial infarction): -His pain is not typical anginal. It is more upper back pain rather than chest discomfort. CAD risk factors of obesity, hypertension, untreated hyperlipidemia and history of smoking. -There are some ST- T wave changes noted on EKG in lateral leads. -He underwent coronary angiogram today. -S/p proximal RCA drug-eluting stent placement with residual 50 to 60% mid circumflex lesion, small first diagonal (possibly culprit) to be medically managed, proximal D2 50 to 60% lesion and PRESS SET UP of OM1 -Continue aspirin, Brilinta, metoprolol. He was started on low-dose lisinopril. Continue nitroglycerin sublingual as needed. -I will discuss with him again about starting statin -This was discussed with patient and his . They are agreeable with the same. Status: Acute (2) Hyperlipidemia: Status: Acute Qualifiers: Hyperlipidemia type: mixed hyperlipidemia Qualified Code(s): E78.2 - Mixed hyperlipidemia (3) Elevated blood pressure reading: No known history of hypertension not on any medications. Status: Acute Additional A&P Information History of statin intolerance: History of smoking: At least [id number] history of smoking, quit about a year ago. Chronic back pain Thank you for allowing me to participate in patient's care. Please feel free to call with questions or concerns. 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
[2020-03-31 17:58] LABS: LDL Cholesterol Direct 155 mg/dL (0-100)
[2020-03-31] MEDS: ticagrelor 90 mg Tablet PO (18:21)
--- NOTE | 2020-03-31 18:23 | PC.NURSE ---
DR herrera at bedside for assessment of site and hematoma instructions given continue fluids 0.45 normal saline at 75 ml/hr
[2020-03-31] MEDS: sodium chloride 0.45% 1,000 ML 75 ML IV (19:44)
--- NOTE | 2020-03-31 20:26 | PC.NURSE ---
Rounding: Patient dressing to R wrist is clean dry and intact and no hematoma. Patient remains alert and oriented.
--- NOTE | 2020-03-31 22:46 | PC.NURSE ---
Patient ambulated post cath. Site is free from hematoma and dressing clean dry and intact.
[2020-04-01 04:30] VITALS: BP 107/72; PULSE 87; RESP 15; TEMP 36.9; O2SAT 96
[2020-04-01 06:00] LABS: Blood Urea Nitrogen 10 mg/dL (6-20); Calcium 9.1 mg/dL (8.5-10.5); Carbon Dioxide 23 mmol/L (22-29); Chloride 104 mmol/L (98-107); Glomerular Filtration Rate 102.7 mL/min (90-130); Glucose 99 mg/dL (65-115); Osmolality Calculated 283 mOsm/kg (285-295); Sodium 137 mmol/L (136-145)
[2020-04-01 06:10] LABS: Anion Gap 14.2 (5-19); Potassium 4.2 mmol/L (3.5-5.1)
[2020-04-01 08:26] VITALS: BP 112/75; PULSE 82; RESP 16; TEMP 36.9
[2020-04-01] MEDS: pantoprazole DR 40 mg Tablet PO (08:44)
[2020-04-01] MEDS: ticagrelor 90 mg Tablet PO (08:44)
[2020-04-01] MEDS: aspirin 81 mg EC Tablet PO (08:44)
[2020-04-01] MEDS: lisinopril 5 mg Tablet PO (08:44)
--- NOTE | 2020-04-01 09:42 | P.DS_ITS ---
Discharge Providers Date of Admission: 03/30/20 13:24 Date of Discharge: April 01, 2020 Attending Provider at Admission: Kait Burnett DO Attending Provider at Discharge: Kait Burnett DO Diagnoses at Discharge Discharge Diagnosis (1) NSTEMI (non-ST elevated myocardial infarction): Status: Acute (2) Hyperlipidemia: Status: Acute Qualifiers: Hyperlipidemia type: mixed hyperlipidemia Qualified Code(s): E78.2 - Mixed hyperlipidemia (3) Elevated blood pressure reading: Status: Acute Reason for Visit Reason for Visit: CHEST PAIN Hospital Course Hospital Course: Patient is a 49-year-old man that presented from an outside emergency department due to concern for chest pain. He was noted to have concern for non-ST elevation IA and cardiology was consulted. Patient was started on treatment dose Lovenox, aspirin, initially giving loading dose of Plavix and started on beta-pamela. Cardiology took patient for a cardiac cath on 03/31/2020 he was noted to have stent placement to RCA. He did well following the procedures with no further chest pain or shortness of breath. On date of discharge she denied any chest pain, verbalized understanding and agreed with plan for discharge and close cardiology follow-up. Physical Exam Const: COMMON NORMALS: patient oriented x3 and alert GENERAL APPEARANCE: cooperative ORIENTATION/CONSCIOUSNESS: Yes awake, Yes oriented to person, Yes oriented to place and Yes oriented to time HENMT: COMMON NORMALS: normocephalic and atraumatic HEAD & SCALP: normocephalic and atraumatic Eye: COMMON NORMALS: Equal, round and reactive pupils present PUPIL: Yes Equal, round and reactive pupils present Neck/C-Spine: COMMON NORMALS: supple GENERAL: Yes normal visual inspection Resp: COMMON NORMALS: normal respiratory effort and clear to auscultation bilaterally EFFORT & INSPECTION: Yes able to speak in complete sentences AUSCULTATION: clear to auscultation bilaterally, no rhonchi and no wheezes Cardio: COMMON NORMALS: regular rate, regular rhythm and No murmurs present (Cardio) RATE: regular rate RHYTHM: regular rhythm GI: INSPECTION: No abdominal distension Extremity: COMMON NORMALS: no clubbing, cyanosis or edema and no calf tenderness Neuro: COMMON NORMALS: patient oriented x3, CN's II-XII intact bilaterally, moves all extremities and no focal motor deficits SENSORIUM/ORIENTATION: Yes alert, Yes oriented to person, Yes oriented to place and Yes oriented to time SPEECH: speech normal Psych: COMMON NORMALS: mental status grossly normal and cooperative Skin: COMMON NORMALS: no rashes or lesions noted GENERAL SKIN EXAM: no rashes or lesions noted Discharge Data Data Completed and Pending: Completed Studies During Hospitalization Category Date Time Status CT angio chest 71 275 Stat Cat Scan 03/30/20 12:11 Completed 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 request for service Urgent Exams 03/31/20 07:35 Completed CV echo complete* [id number] Stat Ultrasound 03/30/20 17:11 Completed Labs from last 24 hours 04/01/20 03/31/20 03/31/20 04:30 15:00 13:03 APTT 57.6 H D > 250.0 H* Sodium 137 Potassium 4.2 Chloride 104 Carbon Dioxide 23 Anion Gap 14.2 BUN 10 Creatinine 0.8 GFR Calculation 102.7 Glucose 99 Calculated Osmolal ity 283 L Calcium 9.1 LDL Cholesterol Di rect 03/31/20 04:47 APTT Sodium Potassium Chloride Carbon Dioxide Anion Gap BUN Creatinine GFR Calculation Glucose Calculated Osmolal ity Calcium LDL Cholesterol Di rect 155 H Vitals: Last Vital Signs Temp 98.4 F 04/01/20 08:26 Pulse 82 04/01/20 08:26 Resp 16 04/01/20 08:26 BP 112/75 04/01/20 08:26 Pulse Ox 96 04/01/20 04:30 Discharge Plan Discharge Patient Disposition: Home Condition: Stable Prescriptions: New Brilinta 90 mg Tablet 90 mg PO BID 30 Days Qty: 60 RF: 2 nitroglycerin 0.4 mg Tablet, Sublingual 0.4 mg sublingual Q5M PRN (Reason: Chest Pain) 30 Days Qty: 25 RF: 1 lisinopril 5 mg Tablet 5 mg PO DAILY 30 Days Qty: 30 RF: 1 metoprolol tartrate 25 mg Tablet 25 mg PO Q12H 30 Days Qty: 60 RF: 1 simvastatin 5 mg tablet 5 mg PO DAILY 30 Days Qty: 30 RF: 0 Continued meclizine 12.5 mg Tablet 12.5 mg PO QAM RF: 0 aspirin 81 mg Tablet,Delayed Release (Dr/Ec) 81 mg PO QPM RF: 0 loratadine 10 mg Tablet 10 mg PO QPM RF: 0 Adult Multivitamin Gummies 200 mcg Tablet,Chewable 400 mcg PO DAILY RF: 0 flaxseed oil-omega 3,6,9 1,300 mg-845 mg -117 mg-117 mg Capsule 1 cap PO DAILY RF: 0 eluttftot-WX-nielomzz-guaifen 1 cap PO QAM RF: 0 Discharge Orders: Discharge Order (Routine); Ordered 04/01/20 Ordered By: Kait Burnett Referrals: Yony Gonzalez MD [Physician] - 04/03/20 1:00 pm Gwendolyn Corey MD [Physician] - 1 week Discharge Diet: Cardiac Discharge Activity: Increase activity as tolerated and Limit activity as instructed Activity Restrictions/Additional Instructions: Increase activity as directed Continue on aspirin 81 mg daily Recommend starting on very low-dose statin, simvastatin daily. If you develop any muscle pain or aches discontinue medication and discuss with your subject scientific research Started on metoprolol 25 mg twice daily Started on lisinopril 5 mg daily Started on Brilinta 90 mg twice daily Follow-up with cardiology in 1 week, follow-up with primary care provider in 2 days as scheduled to establish care Please call your physician or present to the ED for any acute illness or concern Discharge Attestations Time Spent in Discharge Care*: greater than 30 min Specific Discharge Activities: Specific discharge activities: educating patient, discussing with leather case finisher/social workers/dc planners and documenting/other paperwork Quality Metrics Clinical Quality Measures During this hospital stay, did patient experience: AMI Clinical Trial Participant: No Contraindication to aspirin (AMI): Aspirin given Contraindication to statin: Statin prescribed Contraindication to PCI: PCI performed Coding Level of Care Code 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
--- NOTE | 2020-04-01 10:43 | P.PN_ITS ---
Subjective Subjective: Interval history: Doing well this morning. No chest or back pain Medications: Reviewed: Yes Medication Review Details: Current Medications Acetaminophen (Tylenol) 650 mg PO Q6H PRN PRN Reason: Mild/Mod Pain Or Temp >/= 101 Al Hydrox/Mg Hydrox/Simethicone (Maalox) 30 ml PO Q15M PRN PRN Reason: INDIGESTION Alprazolam (Xanax) 0.25 mg PO TID PRN PRN Reason: ANXIETY Aspirin (Aspirin Ec) 81 mg PO DAILY [facility] Last Admin: 04/01/20 08:44 Dose: 81 mg Documented by: Atropine Sulfate (Atropine) 0.5 mg IVP PRN PRN PRN Reason: Symptomatic bradycardia Sodium Chloride (Sodium Chloride 0.45%) 1,000 mls @ 75 mls/hr IV .[id number] [facility] Last Admin: 03/31/20 19:44 Dose: 75 mls/hr Documented by: Lisinopril (Prinivil) 5 mg PO DAILY [facility] Last Admin: 04/01/20 08:44 Dose: 5 mg Documented by: Loratadine (Claritin) 10 mg PO QPM [facility] Last Admin: 03/30/20 17:33 Dose: 10 mg Documented by: Magnesium Hydroxide (Milk Of Magnesia) 30 ml PO DAILY PRN PRN Reason: CONSTIPATION Meclizine HCl (Antivert) 12.5 mg PO QAM PRN PRN Reason: NAUSEA/MOTION SICKNESS Metoprolol Tartrate (Lopressor) 25 mg PO Q12H [facility] Last Admin: 03/31/20 01:25 Dose: Not Given Documented by: Naloxone HCl (Narcan) 0.1 mg IVP Q2M PRN PRN Reason: OPIATERV Nitroglycerin (Nitro-Bid) 1 inch TOPICAL Q6H [facility] Last Admin: 03/31/20 04:50 Dose: 1 inch Documented by: Nitroglycerin (Nitrostat) 0.4 mg SUBLINGUAL Q5M PRN PRN Reason: CHEST PAIN Ondansetron HCl (Zofran) 4 mg IVP Q8H PRN PRN Reason: vomiting, or N/V if npo Pantoprazole Sodium (Protonix) 40 mg PO DAILY [facility] Last Admin: 04/01/20 08:44 Dose: 40 mg Documented by: Temazepam (Restoril) 15 mg PO BEDTIME PRN PRN Reason: INSOMNIA Ticagrelor (Brilinta) 90 mg PO BID [facility] Last Admin: 04/01/20 08:44 Dose: 90 mg Documented by: Vitals/I&O/Wt Last Vital Signs Temp 98.4 F 04/01/20 08:26 Pulse 82 04/01/20 08:26 Resp 16 04/01/20 08:26 BP 112/75 04/01/20 08:26 Pulse Ox 96 04/01/20 04:30 03/31/20 04/01/20 04/01/20 22:59 06:59 14:59 Intake Total 240 / 480 300 / 780 240 / 240 Output Total 1225 / 1225 Balance -985 / -745 300 / -445 240 / 240 Weight last 48 hrs Weight 197 lb 2 oz Physical Exam Const: COMMON NORMALS: no acute distress, average body habitus, patient oriented x3, alert and well nourished GENERAL APPEARANCE: cooperative, comfortable, well kempt and well developed ORIENTATION/CONSCIOUSNESS: Yes oriented to person, Yes oriented to place and Yes oriented to time HENMT: COMMON NORMALS: normocephalic, atraumatic, external ears normal and Normal external nose present HEAD & SCALP: normocephalic and atraumatic FACE & SINUS: face symmetric NOSE: Normal external nose present EXTERNAL EAR: Yes external ears normal MOUTH: Normal oral and palatal mucosa present Eye: COMMON NORMALS: Equal, round and reactive pupils present, EOMs intact bilaterally and conjunctivae normal ALIGNMENT: Yes alignment normal CONJUNCTIVA: Yes conjunctivae normal SCLERA: sclerae normal PUPIL: Yes Equal, round and reactive pupils present Neck/C-Spine: COMMON NORMALS: Thyroid normal GENERAL: Yes trachea midline THYROID: Thyroid normal Lymph: LYMPHATIC: No no lymphadenopathy noted Chest: COMMONS NORMALS: normal inspection of the chest CHEST: Yes Symme trical chest wall rise and No tenderness Resp: COMMON NORMALS: clear to auscultation bilaterally EFFORT & I NSPECTION: Yes able to speak in complete sentences and No labored AUSCULTATION: clear to auscultation bilaterally, no crackles, no rales, no rhonchi and no wheezes Cardio: COMMON NORMALS: regular rate, regular rhythm, S1 normal heart sound present, S2 normal heart sound present and Peripheral pulses 2+ throughout JUGULAR VENOUS DISTENTION: no JVD PALPATION: normal PMI, no heave, no palpable S3, no palpable S4 and no thrill RATE: regular rate RHYTHM: regular rhythm HEART SOUNDS: S1 normal heart sound present, S2 normal heart sound present, no gallops and no murmurs BRUITS: no carotid bruits PERIPHERAL PULSES: Peripheral pulses 2+ throughout GI: COMMON NORMALS: Soft to palpation PALPATION: Yes Soft to palpation PERCUSSION: tympanic to percussion RECTAL EXAM: Yes deferred Back/Pelvis: LUMBAR SPINE/LOWER BACK: Yes normal to inspection Extremity: COMMON NORMALS: no clubbing, cyanosis or edema NARRATIVE EXTREMITY EXAM: Right femoral access site, small hematoma; No bruising GENERAL: No clubbing, No cyanosis, No edema and No pallor Neuro: COMMON NORMALS: patient oriented x3 SENSORIUM/ORIENTATION: Yes alert, Yes oriented to person, Yes oriented to place and Yes oriented to time CRANIAL NERVES: Yes CN normal except as noted Psych: COMMON NORMALS: Normal thought process present APPEARANCE: Yes well kempt MOOD & AFFECT: Yes euthymic mood THOUGHT PROCESS: Normal thought process present THOUGHT CONTENT: Yes Normal thought content present ATTENTION/CONCENTRATION: Yes attention grossly intact MEMORY/COGNITION: Yes memory grossly intact INSIGHT: Good insight present (Psych) JUDGEMENT: Good judgement present (Psych) Skin: COMMON NORMALS: no rashes or lesions noted GENERAL SKIN EXAM: no rashes or lesions noted Data : 03/31/20 04:47 04/01/20 04:30 A&P Assessment and plan (1) NSTEMI (non-ST elevated myocardial infarction): -His pain is not typical anginal. It is more upper back pain rather than chest discomfort. CAD risk factors of obesity, hypertension, untreated hyperlipidemia and history of smoking. -There are some ST- T wave changes noted on EKG in lateral leads. -He underwent coronary angiogram yesterday. 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 He was started on low-dose lisinopril. Continue nitroglycerin sublingual as needed. -After discussing with him again about starting statin, plan to start on ultra low dose statin. -Follow up with Kourtney in 1 weeks and with me in 1 month. Do not lift anything more than 10 lbs for 1 week. Keep the site dry and clean. N o swimming or tub bath. Shower only. Take medications as prescribed and follow up as scheduled. Status: Acute (2) Hyperlipidemia: Results of last liver panel was discussed with the patient. Cardiac low- fat diet and medication compliance was discussed with the patient. Importance of regular exercise was discussed as well. Status: Acute Qualifiers: Hyperlipidemia type: mixed hyperlipidemia Qualified Code(s): E78.2 - Mixed hyperlipidemia (3) HTN (hypertension): continue lisinopril and metoprolol. Patient's blood pressure is at goal. He was advised again on importance of salt restriction, DASH diet and exercise in managing his blood pressure. -BP/HR log x 2 weeks. Status: Acute Additional A&P Information History of statin intolerance: muscle aches with simvastatin and lipitor. May try crestor 5 mg weekly if intolerant to low dose simvastatin. History of smoking: At least [id number] history of smoking, quit about a year ago. Chronic back pain Thank you for allowing me to participate in patient's care. Please feel free to call with questions or concerns. Attestations Medical Necessity Statement*: stable to be discharged home. Coding Level of Care Code Acute System Support Specialist for Nona Pierre History Comprehensive Exam Comprehensive Medical Decision Making High Complexity Diagnoses NSTEMI (non-ST elevated myocardial infarction) I21.4 Hyperlipidemia E78.2 Hyperlipidemia type: mixed hyperlipidemia HTN (hypertension) I10 Time Spent (min) 40
[2020-04-01] MEDS: prasugrel 10 MG Tablet 60 MG PO (11:33)
[2020-04-01 11:53] VITALS: BP 118/76; PULSE 94; RESP 15; O2SAT 97
[2020-04-01 11:55] VITALS: BP 118/76; PULSE 94; RESP 15; O2SAT 97
--- NOTE | 2020-04-01 12:36 | PC.NURSE ---
1215 patient discharged home at this all discharge instructions provided and explained along with education on post angiogram site care instructions and restrictions. patient verbalized understanding. patient assisted to wheel chair and accompanied by staff to POV all belongings and discharge instructions in hands. patient alert oriented and in stable condition.
== END 2020-04-01 12:18 | disposition home or self-care (01) | DRG 247 ==
LOC: ER 12:19 → CSU 14:07
PROVIDERS: Internal Medicine Cardiovascular Disease; Nurse Practitioner Family; Admitting Provider Family Medicine; Emergency Provider Family Medicine; Visit Provider Family Medicine
PROC: 027034Z Dilation of Coronary Artery, One Artery with Drug-eluting Intraluminal Device, Percutaneous Approach (ICD-10-PCS; principal; 2020-03-31 09:00)
PROC: 027034Z Dilation of Coronary Artery, One Artery with Drug-eluting Intraluminal Device, Percutaneous Approach (ICD-10-PCS; 2020-03-31 09:00)
DX: I21.4 Non-ST elevation (NSTEMI) myocardial infarction (principal); E78.2 Mixed hyperlipidemia; Z79.82 Long term (current) use of aspirin
CPT/HCPCS: 12345; 36415; 71275; 80048; 80061; 83036; 83721; 83880; 84443; 84484; 85025; 85347; 85610; 85730; 86141; 87426; 93005; 93306; 93454; 96372; 96375; 99283; C1725; C1769; C1874; C1887; C1894; C9600; J1644; J1650; J2250; J2270; J3010; Q9967

== ENCOUNTER → 2020-04-08 15:24 | Outpatient (BNVA) | payer SELFPAY | PROVIDERS: PCP Family Medicine Adult Medicine; Visit Provider Internal Medicine Cardiovascular Disease | DX: I25.10 Atherosclerotic heart disease of native coronary artery without angina pectoris (principal) | CPT/HCPCS: 80048 ==

== ENCOUNTER → 2020-07-06 12:30 | Outpatient (BNVA) | payer SELFPAY | PROVIDERS: PCP Family Medicine Adult Medicine; Visit Provider Internal Medicine Cardiovascular Disease | DX: I25.10 Atherosclerotic heart disease of native coronary artery without angina pectoris (principal); E78.2 Mixed hyperlipidemia; I10 Essential (primary) hypertension; R42 Dizziness and giddiness | CPT/HCPCS: 80053; 80061; 83721 ==

== ENCOUNTER 2020-09-07 00:38 | Emergency (ER) | payer SELFPAY ==
[2020-09-07] VITALS (7 sets, daily range): BP systolic 104–143; BP diastolic 64–78; PULSE 91–114; RESP 14–21; TEMP 36.9; O2SAT 95–99; BMI 29.8
--- NOTE | 2020-09-07 00:41 | ECG_ITS ---
[facility] Test Date: 2020-09-07 Pat Name: Johan Pelayo Department: Room: Gender: Male [place] Hand: : 1970 Requested By: Tonya Sher Order Number: [id number] Vladimir MD: Darrell Palomares M.D. Measurements Intervals [place] Rate: 109 P: 53 UT: 96 QRS: 83 QRSD: 80 T: 38 QT: 319 QTc: 431 Interpretive Statements SINUS TACHYCARDIA WITH SHORT UT INTERVAL POSSIBLE LEFT ATRIAL ENLARGEMENT [-0.1mV P WAVE IN V1/V2] NONSPECIFIC ST & T-WAVE ABNORMALITY Compared to ECG 03/30/2020 13:20:23 T-wave abnormality now present Sinus rhythm no longer present Myocardial infarct finding no longer present Electronically Signed On 09-07-2020 19:24:37 CDT by Darrell Palomares M.D. [email or web address]
--- NOTE | 2020-09-07 00:54 | ED_ITS ---
HPI - Abdominal Pain General: Chief Complaint: Abdominal Pain Stated Complaint: n/v/high heart rate Time Seen by Provider: 09/07/20 00:40 Source: patient and family (SPOUSE) Mode of arrival: ambulatory Limitations: no limitations History of Present Illness: HPI narrative: 49-year-old male patient presents to the emergency department with nausea vomiting. He reports him and his ate fish at approximately 5:30 PM this evening. He states that his first became nauseated with vomiting. He reports that approximately 10 PM, he became violently ill with nausea vomiting. He reports vomited up his nighttime medication and noted that his heart rate was elevated. He reports cardiac history and is nervous that his heart rate is elevated, he reports continued nausea upon exam. He denies chest pain, shortness of breath, he denies chest discomfort. He reports took nitroglycerin to help reduce his heart rate. He states chewed 3 aspirins because his heart rate was elevated. Pertinent past history: other (Nausea vomiting, denies abdominal pain) Onset (ago): hour(s) (1) Location: None Relieving factors: vomiting Context: possible food poisoning Associated Symptoms: Reports bloating, chills, nausea and vomiting; Denies change in stool character, constipation, diarrhea, dysuria, heartburn and syncope Review of Systems General: Reports: 10 or more systems reviewed and unremarkable except in HPI and below Const: Reports: chills Eyes: Denies: blurry vision or eye redness ENMT: Denies: throat pain, dental pain or disequilibrium Card: Reports: other (Rapid heart rate); Denies: chest pain, palpitations, irregular heart rhythm, edema, swelling of feet/ankles, lightheadedness or syncope Resp: Denies: dyspnea, productive cough, non-productive cough or wheezing GI: Reports: nausea, vomiting and bloating; Denies: abdominal pain, heartburn, diarrhea, constipation or change in stool character : Denies: dysuria Musc: Denies: neck pain, back pain, joint pain or joint warmth Skin/Breast: Denies: rash or pruritus Neuro: Denies: headache(s), weakness in extremities or behavioral changes Psych: Denies: anxiety or depression Omar/Lymph: Denies: easy bruising [facility] ED PFSH: Medical History (Updated 09/07/20 @ 02:00 by NNAMDI Cobos) 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 Chronic vertigo Hyperlipidemia NSTEMI (non-ST elevated myocardial infarction) Seasonal allergies Surgical History History of local excision of skin lesion R shoulder Family History Father Lung disease Secondary to asbestos exposure Mother Cancer Small cell lung cancer Social History Smoking and tobacco status: former smoker Alcohol intake: current Alcohol intake frequency: holidays/special occasions only Marital status: Physical Exam Const: COMMON NORMALS: no acute distress, patient oriented x3, healthy appearing, alert and well nourished GENERAL APPEARANCE: cooperative, comfortable, well kempt, well developed and well hydrated; not anxious and not ill appearing NUTRITIONAL APPEARANCE: thin ORIENTATION/CONSCIOUSNESS: Yes awake, Yes oriented to person, Yes oriented to p lace and Yes oriented to time HENMT: COMMON NORMALS: normocephalic, atraumatic, Normal external nose present and moist oral mucous membranes HEAD & SCALP: normocephalic and atraumatic FACE & SINUS: normal facial exam and face symmetric NOSE: Normal external nose present MOUTH: Normal oral and palatal mucosa present and tongue normal THROAT: posterior oropharynx normal and uvula midline Eye: COMMON NORMALS: Equal, round and reactive pupils present and EOMs intact bilaterally GENERAL EYE: appearance normal, both eyes and all related structures PUPIL: Yes Equal, round and reactive pupils present Neck/C-Spine: COMMON NORMALS: full ROM and no lymphadenopathy GENERAL: Yes normal visual inspection and Yes trachea midline CERVICAL SPINE: Yes cervical ROM normal Lymph: LYMPHATIC: no lymphadenopathy noted Chest: COMMONS NORMALS: normal inspection of the chest Resp: COMMON NORMALS: normal respiratory effort, No retractions, No use of accessory muscles and clear to auscultation bilaterally EFFORT & INSPECTION: Yes able to speak in complete sentences AUSCULTATION: clear to auscultation bilaterally Cardio: COMMON NORMALS: regular rate, regular rhythm, S1 normal heart sound present, S2 normal heart sound present and Peripheral pulses 2+ throughout RATE: regular rate RHYTHM: regular rhythm HEART SOUNDS: S1 normal heart sound present and S2 normal heart sound present PERIPHERAL PULSES: Peripheral pulses 2+ throughout GI: COMMON NORMALS: Soft to palpation and non-tender INSPECTION: Yes normal to inspection PALPATION: Yes Soft to palpation : COMMON NORMALS: Yes no CVA tenderness BLADDER/KIDNEY EXAM: Yes no CVA tenderness Back/Pelvis: COMMON NORMALS: no CVA tenderness and thoracic and lumbar spine normal to inspection Extremity: COMMON NORMALS: normal to inspection, full ROM, capillary refill normal and no pedal edema GENERAL: Yes normal exam except as noted Neuro: COMMON NORMALS: patient oriented x3 and no focal motor deficits SENSORIUM/ORIENTATION: Yes alert, Yes oriented to person, Yes oriented to place and Yes oriented to time GAIT: Yes Normal gait present MOTOR EXAM: 5/5 motor strength present throughout Psych: COMMON NORMALS: mental status grossly normal, Normal thought process present and cooperative APPEARANCE: Yes well kempt ACTIVITY/MOTOR BEHAVIOR: Yes appropriate eye contact THOUGHT PROCESS: Normal thought process present Skin: COMMON NORMALS: no rashes or lesions noted and turgor normal GENERAL SKIN EXAM: no rashes or lesions noted and turgor normal Course Vital Signs: Vital signs: Vital Signs Temperature 98.4 F 09/07/20 00:45 Pulse Rate 93 09/07/20 02:05 Respiratory Rate 18 09/07/20 02:05 Blood Pressure 119/65 09/07/20 02:05 Pulse Oximetry 95 09/07/20 02:05 MDM - Abdominal Pain MDM Narrative: Medical decision making narrative: 49-year-old male patient presents to the emergency department with acute nausea vomiting after eating fish. His spouse also experienced similar symptoms with acute nausea vomiting within an hour. He presented with tachycardia, he was concerned of his heart rate as he vomited up his medication. Upon arrival to the ED, Zofran was administered, nausea resolved, he was able to tolerate ice water without vomiting. He continued to describe bloating of his abdomen, Maalox with simethicone administered. He did not complain of abdominal pain, belly was not tender upon abdominal exam, he did not complain of chest pain shortness of breath. He denied urinary symptoms. Serology findings with elevated white blood count of 14,000 which could attribute because of vomiting. Chemistry unremarkable, lipase 13. He remained sinus rhythm to the monitor, heart rate decreased to 80 ventricular rate. He received 500 cc of normal saline bolus here in the ED. Lab Data: Labs: Lab Results 03/29/21 03/29/21 Range/Units 00:54 00:54 WBC 14.1 H (4.0-10.0) 10^3/ uL RBC 5.35 H (4.1-5.3) 10^6/u L Hgb 16.5 (11.7-16.6) g/dL Hct 47.2 (42.0-52.0) % MCV 88.2 (80-94) fL MCH 30.8 (28.0-34.0) pg MCHC 35.0 (30.0-36.0) g/dL RDW 12.4 (12.1-15.1) % Plt Count 198 (130-400) 10^3/c mm MPV 9.8 (7.4-10.4) fL Neut % (Auto) 88.3 % Lymph % (Auto) 6.2 % Bracken % (Auto) 4.5 % Eos % (Auto) 0.1 % Baso % (Auto) 0.3 % Neut # (Auto) 12.46 H (1.8-7.7) 10^3/u L Lymph # (Auto) 0.9 (0.8-4.8) 10^3/u L Bracken # (Auto) 0.6 (0.2-0.9) 10^3/u L Eos # (Auto) 0.0 (0.0-0.8) 10^3/u L Baso # (Auto) 0.0 (0.0-0.1) 10^3/u L Nucleated RBC % (a uto) 0 % Nucleated RBCs # 0.0 /100WBC Sodium 141 (136-145) mmol/L Potassium 3.6 (3.5-5.1) mmol/L Chloride 102 (98-107) mmol/L Carbon Dioxide 25 (22-29) mmol/L Anion Gap 17.6 (5-19) BUN 18 (6-20) mg/dL Creatinine 0.8 (0.7-1.2) mg/dL GFR Calculation 102.7 (90-130) mL/min Glucose 134 H (65-115) mg/dL Calculated Osmolal ity 296 H (285-295) mOsm/k g Calcium 9.4 (8.5-10.5) mg/dL Total Bilirubin 0.8 (0.15-1.2) mg/dL AST 21 (0-40) U/L ALT 32 (0-41) U/L Alkaline Phosphata se 72 (40-130) IU/L Total Protein 7.5 (6.6-8.7) g/dL Albumin 4.5 (3.5-5.2) g/dL Globulin 3.0 (1.3-4.6) g/dL Lipase 13 (13-60) U/L EKG Data ^: EKG 1: EKG interpretation date: 09/07/20 EKG interpretation time: 00:45 Other EKG comments: Sinus tachycardia with short CA interval, possible left atrial enlargement, ventricular rate 109 Discharge Plan Discharge Patient Disposition: Home Clinical Impression: Acute nausea with nonbilious vomiting, Tachycardia Gastritis Qualifiers: Gastritis type: unspecified gastritis Chronicity: acute Gastritis bleeding: without bleeding Qualified Code(s): K29.00 - Acute gastritis without bleeding Condition: Stable Prescriptions: New Zofran 4 mg tablet 4 mg PO Q4H 5 Days Qty: 14 RF: 0 No Action nitroglycerin 0.4 mg tablet, sublingual 0.4 mg sublingual Q5M PRN (Reason: Chest Pain) 30 Days Qty: 25 RF: 1 simvastatin 10 mg tablet 10 mg PO DAILY Qty: 90 RF: 3 metoprolol tartrate 25 mg tablet 25 mg PO Q12H Qty: 180 RF: 3 prasugrel 10 mg tablet 10 mg PO DAILY Qty: 90 RF: 3 meclizine 12.5 mg Tablet 12.5 mg PO QAM RF: 0 aspirin 81 mg Tablet,Delayed Release (Dr/Ec) 81 mg PO QPM RF: 0 loratadine 10 mg Tablet 10 mg PO QPM RF: 0 Adult Multivitamin Gummies 200 mcg Tablet,Chewable 400 mcg PO DAILY RF: 0 flaxseed oil-omega 3,6,9 1,300 mg-845 mg -117 mg-117 mg Capsule 1 cap PO DAILY RF: 0 [id number]-[id number]-usxcwqlh-guaifen 1 cap PO QAM RF: 0 Discharge Orders: Discharge ED (Routine); Ordered 09/07/20 Ordered By: Tonya Méndez Referrals: Caro Leary, [Primary Care Provider] - Discharge Diet: Advance as tolerated and Clear Liquid Discharge Activity: Limit activity as instructed Patient Instructions: Gastritis (ED), Acute Nausea and Vomiting (ED), Atrial Tachycardia (ED), Opioid Safety Activity Restrictions/Additional Instructions: Clear liquid diet x24 hours then advance as tolerated, upon advancing diet, avoid fried greasy fatty foods. Push fluids to avoid dehydration Utilize Zofran as needed for nausea vomiting Return to the emergency department if you develop worsening symptoms such as blood in your stool or vomiting blood. 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
[2020-09-07] MEDS: ondansetron 2 mg/ML SDV 2 mL 4 MG IVP (01:01)
[2020-09-07] MEDS: metoprolol tartrate 25 mg Tablet PO (01:01)
[2020-09-07 01:02] LABS: Basophils % 0.3 %; Eosinophils % 0.1 %; Hematocrit 47.2 % (42.0-52.0); Hemoglobin 16.5 g/dL (11.7-16.6); Lymphocytes # 0.9 10^3/uL (0.8-4.8); Lymphocytes % 6.2 %; Mean Corpuscular Hemoglobin 30.8 pg (28.0-34.0); Mean Corpuscular Volume 88.2 fL (80-94); Mean Platelet Volume 9.8 fL (7.4-10.4); Monocytes # 0.6 10^3/uL (0.2-0.9); Monocytes % 4.5 %; Neutrophils # 12.46 10^3/uL (1.8-7.7); Neutrophils % 88.3 %; Nucleated Red Blood Cells % 0 %; Platelet Count 198 10^3/cmm (130-400); Red Blood Count 5.35 10^6/uL (4.1-5.3); Red Cell Distribution Width 12.4 % (12.1-15.1); White Blood Count 14.1 10^3/uL (4.0-10.0)
[2020-09-07] MEDS: sodium chloride 0.9% 500 ML 999 ML IV (01:02)
[2020-09-07 01:24] LABS: Alanine Aminotransferase 32 U/L (0-41); Albumin Level 4.5 g/dL (3.5-5.2); Alkaline Phosphatase 72 IU/L (40-130); Anion Gap 17.6 (5-19); Aspartate Amino Transferase 21 U/L (0-40); Blood Urea Nitrogen 18 mg/dL (6-20); Calcium 9.4 mg/dL (8.5-10.5); Carbon Dioxide 25 mmol/L (22-29); Chloride 102 mmol/L (98-107); Glomerular Filtration Rate 102.7 mL/min (90-130); Glucose 134 mg/dL (65-115); Lipase 13 U/L (13-60); Osmolality Calculated 296 mOsm/kg (285-295); Potassium 3.6 mmol/L (3.5-5.1); Sodium 141 mmol/L (136-145); Total Bilirubin 0.8 mg/dL (0.15-1.2); Total Protein 7.5 g/dL (6.6-8.7)
[2020-09-07] MEDS: famotidine 20 mg Tablet 40 MG PO (02:04)
[2020-09-07] MEDS: alum-mag-hydroxide-sime 30 mL UDC PO (02:04)
[2020-09-07] MEDS: ondansetron 4 MG Tablet PO (03:09)
== END 2020-09-07 03:12 | disposition home or self-care (01) ==
PROVIDERS: Emergency Provider Nurse Practitioner Family; PCP Internal Medicine
DX: K29.00 Acute gastritis without bleeding (principal); R00.0 Tachycardia, unspecified; Z79.82 Long term (current) use of aspirin; I25.10 Atherosclerotic heart disease of native coronary artery without angina pectoris; E78.5 Hyperlipidemia, unspecified; I25.2 Old myocardial infarction; Z87.891 Personal history of nicotine dependence
CPT/HCPCS: 80053; 83690; 85025; 93005; 96374; 99283; J2405; J7040; Q0162

== ENCOUNTER 2021-07-11 17:33 | Emergency (ER) | payer BC, SELFPAY ==
[2021-07-11 17:57] VITALS: BP 146/93; PULSE 94; RESP 18; TEMP 37.1; O2SAT 98; BMI 32.1
--- NOTE | 2021-07-11 18:25 | W.ED.GENADLT ---
HPI - General Adult General: Chief complaint: General Medical Stated complaint: high bp Time Seen by Provider: 07/11/21 18:25 History of Present Illness: Patient is a 50-year-old male who comes to the ED with elevated blood pressure. Patient says he was in his house working on his master bathroom. There was a mistake made in the water was turned on when the piping was not ready and it soaked all his new sunday and he had to remove all his new sunday. That caused him a lot of stress and he checked his blood pressure and it was upper 140/90. He denies any symptoms with the elevated blood pressure. Does not have any chest pain, back pain or any shortness of breath. takes metoprolol at 7 PM at night for his blood pressure. Patient has a history of a cardiac stent placed and currently has some nitro at home. He decided to take a nitro to try and help his blood pressure. Associated symptoms: Deny chest pain, dyspnea, headache(s), nausea, rash, palpitations or vomiting Review of Systems Const: Denies: fever(s), chills or fatigue Eyes: Denies: change in vision or eye discomfort ENMT: Denies: throat pain, odynophagia, nasal discharge or nasal congestion Card: Denies: chest pain, palpitations, edema, swelling of feet/ankles, dyspnea on exertion or orthopnea Resp: Denies: dyspnea, productive cough or non-productive cough GI: Denies: abdominal pain, nausea, vomiting, diarrhea, constipation or hematochezia : Denies: flank pain, difficulty urinating, dysuria or hematuria Musc: Denies: neck pain, back pain or extremity swelling Skin/Breast: Denies: rash or new lesions Neuro: Denies: headache(s) PFS ED PFSH: Medical History CAD in [place] artery Chronic vertigo Hyperlipidemia NSTEMI (non-ST elevated myocardial infarction) Seasonal allergies Surgical History History of local excision of skin lesion R shoulder Family History Father Lung disease Secondary to asbestos exposure Mother Cancer Small cell lung cancer Social History Smoking and tobacco status: former smoker Alcohol intake: current Alcohol intake frequency: holidays/special occasions only Marital status: Physical Exam Const: COMMON NORMALS: no acute distress, patient oriented x3, healthy appearing and alert GENERAL APPEARANCE: cooperative and comfortable HENMT: COMMON NORMALS: normocephalic HEAD & SCALP: normocephalic MOUTH: Normal oral and palatal mucosa present THROAT: posterior oropharynx normal and uvula midline Neck/C-Spine: COMMON NORMALS: supple GENERAL: Yes normal visual inspection Resp: COMMON NORMALS: normal respiratory effort, No retractions, No use of accessory muscles and clear to auscultation bilaterally AUSCULTATION: clear to auscultation bilaterally Cardio: COMMON NORMALS: regular rate, regular rhythm, S1 normal heart sound present, S2 normal heart sound present, No gallops present (Cardio), No clicks present (Cardio), No murmurs present (Cardio) and Peripheral pulses 2+ throughout RATE: regular rate RHYTHM: regular rhythm HEART SOUNDS: S1 normal heart sound present and S2 normal heart sound present PERIPHERAL PULSES: Peripheral pulses 2+ throughout GI: COMMON NORMALS: Normal to inspection, nondistended, normoactive bowel sounds present, Soft to palpation, non-tender and no masses PALPATION: Yes Soft to palpation : COMMON NORMALS: Yes no CVA tenderness BLADDER/KIDNEY EXAM: Yes no CVA tenderness Back/Pelvis: COMMON NORMALS: no CVA tenderness Extremity: COMMON NORMALS: normal to inspection Neuro: COMMON NORMALS: patient oriented x3 SENSORIUM/ORIENTATION: Yes alert GAIT: Yes Normal gait present Skin: GENERAL SKIN EXAM: dry skin Course Vital Signs: Vital signs: Vital Signs Temperature 97.8 F 07/11/21 18:57 Pulse Rate 93 07/11/21 18:57 Respiratory Rate 18 07/11/21 18:57 Blood Pressure 151/90 07/11/21 18:57 Pulse Oximetry 99 07/11/21 18:57 [facility] - General Adult Medical Decision Making Patient is a 50-year-old male who comes to the ED with elevated blood pressure. Patient says he was in his house working on his master bathroom. There was a mistake made in the water was turned on when the piping was not ready and it soaked all his new sunday and he had to remove all his new sunday. That caused him a lot of stress and he checked his blood pressure and it was upper 140/90. He denies any symptoms with the elevated blood pressure. Does not have any chest pain, back pain or any shortness of breath. Vitals are stable and patient's blood pressure is 146/93 here in the ED rest of vitals are stable. Exam of patient is benign and he appears healthy and in no acute distress or pain. Patient appears healthy and cleared for discharge home. I told him to follow-up with his PCP in the next 5 to 7 days for reevaluation. I recommended that he continue taking his previously prescribed hypertension med. Return to ED precautions given. Patient understood and agreed with plan. Discharge Plan Discharge Patient Disposition: Home Clinical Impression: HTN (hypertension) Condition: Stable Prescriptions: No Action nitroglycerin 0.4 mg tablet, sublingual 0.4 mg sublingual Q5M PRN (Reason: Chest Pain) 30 Days Qty: 25 1RF metoprolol tartrate 25 mg tablet 25 mg PO Q12H Qty: 180 3RF prasugrel 10 mg tablet 10 mg PO DAILY Qty: 90 3RF simvastatin 20 mg tablet See Rx Instructions .ROUTE .COMPLEX Qty: 30 3RF Dose Instruction: Take 1 tablet by mouth once daily Rx Instructions: Take 1 tablet by mouth once daily meclizine 12.5 mg Tablet 12.5 mg PO QAM 0RF aspirin 81 mg Tablet,Delayed Release (Dr/Ec) 81 mg PO QPM 0RF Adult Multivitamin Gummies 200 mcg Tablet,Chewable 400 mcg PO DAILY 0RF flaxseed oil-omega 3,6,9 1,300 mg-845 mg -117 mg-117 mg Capsule 1 cap PO DAILY 0RF jfcgjfcfc-YC-uusbuvrk-guaifen 1 cap PO QAM 0RF Discharge Orders: Discharge ED (Routine); Ordered 07/11/21 Ordered By: Paras Hernandez Discharge Diet: Regular Discharge Activity: Resume usual activity Patient Instructions: Hypertension (ED) Activity Restrictions/Additional Instructions: Follow-up with medical provider as directed in 7 to 10 days reevaluation. Take your dose of metoprolol soon as you get home tonight. Return to the ER or your medical provider if condition worsens. Please read and understand discharge instructions. Thank you for choosing [facility] for your healthcare needs today. Please realize this is an emergency room and that we are providing you with a medical screening exam and this may not be complete and all inclusive of all the testing and or work up that you may need to determine your ailment or severity of your illness. It is very important that you follow up as instructed or that you return to the Emergency Department should you have concerns or if your condition changes or worsens in any way. Coding Level of Care Code ED Geosciences Associate Professor for Chg Fwd Exam Comprehensive
[2021-07-11 18:57] VITALS: BP 151/90; PULSE 93; RESP 18; TEMP 36.6; O2SAT 99
== END 2021-07-11 19:02 | disposition home or self-care (01) ==
PROVIDERS: Emergency Provider Physician Assistant
DX: I10 Essential (primary) hypertension (principal); Z79.82 Long term (current) use of aspirin; I25.10 Atherosclerotic heart disease of native coronary artery without angina pectoris; E78.49 Other hyperlipidemia; I25.2 Old myocardial infarction; Z87.891 Personal history of nicotine dependence
CPT/HCPCS: 99282

== ENCOUNTER → 2021-10-27 12:08 | Outpatient (BNVA) | payer SELFPAY | PROVIDERS: PCP Counselor Professional; Visit Provider Internal Medicine Cardiovascular Disease | DX: I25.10 Atherosclerotic heart disease of native coronary artery without angina pectoris (principal); I10 Essential (primary) hypertension; E78.2 Mixed hyperlipidemia; R42 Dizziness and giddiness | CPT/HCPCS: 80053; 80061; 83721; 85025 ==

== ENCOUNTER 2022-02-04 20:42 | Emergency (ER) | payer BC, SELFPAY ==
[2022-02-04 20:47] VITALS: BP 133/78; PULSE 85; RESP 16; TEMP 36.7; O2SAT 98; BMI 30.3
--- NOTE | 2022-02-04 20:51 | ECG_ITS ---
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 Measurements Intervals [place] Rate: 84 P: 50 [place]: 116 QRS: 72 QRSD: 93 T: 37 QT: 346 QTc: 411 Interpretive Statements SINUS RHYTHM WITH SHORT [place] INTERVAL Compared to ECG 09/07/2020 00:45:24 Sinus tachycardia no longer present T-wave abnormality no longer present Electronically Signed On 02-05-2022 9:23:39 CDT by Calos Vasquez M.D. [email or web address]/[id number] f
[2022-02-04 21:29] VITALS: BP 133/78; PULSE 71; RESP 18; O2SAT 98
--- NOTE | 2022-02-04 21:32 | XRR_ITS ---
PROCEDURE INFORMATION: Exam: XR Chest Exam date and time: 02/04/2022 9:35 PM Age: 51 years old Clinical indication: Angina; Additional info: Cp TECHNIQUE: Imaging protocol: Radiologic exam of the chest. Views: 1 view. COMPARISON: CT angio chest [id number] 03/30/2020 1:01 PM FINDINGS: Lungs: Unremarkable. No consolidation. Pleural spaces: Unremarkable. No pleural effusion. No pneumothorax. Heart/Mediastinum: Unremarkable. No cardiomegaly. Bones/joints: Unremarkable. XR/XR chest 1V portable [id number] IMPRESSION: No acute findings.
[2022-02-04 21:51] LABS: Basophils # 0.1 10^3/uL (0.0-0.1); Basophils % 0.7 %; Eosinophils # 0.3 10^3/uL (0.0-0.8); Eosinophils % 2.9 %; Hematocrit 44.6 % (42.0-52.0); Hemoglobin 15.6 g/dL (11.7-16.6); Lymphocytes # 3.7 10^3/uL (0.8-4.8); Lymphocytes % 35.1 %; Mean Corpuscular Hemoglobin 31.5 pg (28.0-34.0); Mean Corpuscular Volume 89.9 fl (80-94); Mean Platelet Volume 10.1 fL (7.4-10.4); Monocytes # 0.8 10^3/uL (0.2-0.9); Monocytes % 7.2 %; Neutrophils # 5.64 10^3/uL (1.8-7.7); Neutrophils % 53.8 %; Nucleated Red Blood Cells % 0 %; Platelet Count 217 10^3/cmm (130-400); Red Blood Count 4.96 10^6/uL (4.1-5.3); Red Cell Distribution Width 12.1 % (12.1-15.1); White Blood Count 10.5 10^3/uL (4.0-10.0)
[2022-02-04 21:58] LABS: Troponin(5th) Baseline 6 ng/L (0-15)
[2022-02-04 22:06] LABS: Alanine Aminotransferase 29 U/L (0-41); Albumin Level 4.4 g/dL (3.5-5.2); Alkaline Phosphatase 67 U/L (40-130); Anion Gap 16.4 (5-19); Aspartate Amino Transferase 20 U/L (0-40); Blood Urea Nitrogen 12 mg/dL (6-20); Calcium 9.2 mg/dL (8.5-10.5); Carbon Dioxide 24 mmol/L (22-29); Chloride 101 mmol/L (98-107); Creatine Phosphokinase 82 U/L (39-308); Globulin 2.4 g/dL (1.3-4.6); Glomerular Filtration Rate 118.9 mL/min (90-130); Glucose 126 mg/dL (65-115); NT Pro B Type Natriuretic Pept 21 pg/mL (0-125); Osmolality Calculated 287 mOsm/kg (285-295); Potassium 3.4 mmol/L (3.5-5.1); Sodium 138 mmol/L (136-145); Total Bilirubin 0.4 mg/dL (0.15-1.2); Total Protein 6.8 g/dL (6.6-8.7)
--- NOTE | 2022-02-04 22:54 | ECG_ITS ---
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 Measurements Intervals [place] Rate: 78 P: 53 MS: 112 QRS: 65 QRSD: 83 T: 35 QT: 345 QTc: 393 Interpretive Statements SINUS RHYTHM WITH SHORT [place] INTERVAL Compared to ECG 02/04/2022 20:51:36 No significant changes Electronically Signed On 02-05-2022 9:28:07 CDT by Calos Vasquez M.D. [email or web address]/store/OM/[id number]
[2022-02-04 22:58] VITALS: BP 126/62; PULSE 74; RESP 12; O2SAT 95
[2022-02-04 23:00] VITALS: BP 103/62; PULSE 71; RESP 14; O2SAT 98
[2022-02-04 23:26] LABS: Troponin 5 2HR 10.87 ng/L (0-15)
--- NOTE | 2022-02-04 23:47 | W.ED.CHESTPA ---
HPI - Chest Pain General: Chief Complaint: Chest Pain Stated Complaint: cp Time Seen by Provider: 02/04/22 20:56 Source: patient History of Present Illness: 51-year-old male with a history of coronary disease. He notes that he had 1 stent placed in March 2020 he presents with a brief episode of chest discomfort earlier in the evening. He noticed that his blood pressure was high. He took an extra metoprolol at home, as he had cut back recently on this because of lower blood pressure. He is pain-free currently. He had mild shortness of breath that is resolved. He is essentially asymptomatic. MD complaint: chest pain Pertinent past history: coronary artery disease Onset (ago): hour(s) Prior episodes: No Onset: associated with drug use Pain location: substernal Pain radiation: none Relieving factors: other Exacerbating factors: nothing Associated symptoms: Reports diaphoresis ( Flushness ); Deny abdominal pain, dyspnea, fever(s), leg edema, nausea, palpitations or vomiting Review of Systems Const: Reports: diaphoresis ( Flushness ); Denies: fever(s) Card: Reports: chest pain; Denies: palpitations Resp: Denies: dyspnea GI: Denies: abdominal pain, nausea or vomiting PFSH ED PFSH: Medical History (Updated 02/05/22 @ 00:09 by Varghese Martell DO) CAD in [place] artery Chronic vertigo Hyperlipidemia NSTEMI (non-ST elevated myocardial infarction) Seasonal allergies Surgical History History of local excision of skin lesion R shoulder Family History Father Lung disease Secondary to asbestos exposure Mother Cancer Small cell lung cancer Social History Smoking and tobacco status: former smoker Alcohol intake: current Alcohol intake frequency: holidays/special occasions only Marital status: Physical Exam Const: COMMON NORMALS: no acute distress GENERAL APPEARANCE: cooperative; not ill appearing HENMT: COMMON NORMALS: normocephalic and atraumatic HEAD & SCALP: normocephalic and atraumatic FACE & SINUS: normal facial exam Eye: COMMON NORMALS: Equal, round and reactive pupils present and EOMs intact bilaterally PUPIL: Yes Equal, round and reactive pupils present Chest: CHEST: Yes Symmetrical chest wall rise Resp: COMMON NORMALS: normal respiratory effort, No use of accessory muscles and clear to auscultation bilaterally AUSCULTATION: clear to auscultation bilaterally Cardio: COMMON NORMALS: regular rate and regular rhythm RATE: regular rate RHYTHM: regular rhythm GI: COMMON NORMALS: Normal to inspection, nondistended, normoactive bowel sounds present and Soft to palpation PALPATION: Yes Soft to palpation Extremity: COMMON NORMALS: no pedal edema Neuro: CLAUDY COMA SCALE: document GCS findings [place] coma scale eye opening: Spontaneous Claudy coma scale verbal response: Orientated [place] coma scale motor response: Obey commands Claudy coma scale total score: 15 Course Vital Signs: Vital signs: Vital Signs Temperature 98.1 F 02/04/22 20:47 Pulse Rate 76 02/05/22 01:21 Respiratory Rate 16 02/05/22 01:21 Blood Pressure 102/64 02/05/22 01:21 Pulse Oximetry 98 02/05/22 01:21 Oxygen Delivery Me thod 02/04/22 20:47 MDM - Chest Pain Medical Decision Making Chest discomfort is resolved prior to arrival. His blood pressure is currently 1 over 3/62, heart rate 80. EKG shows a sinus rhythm. [place] interval is 116. QRS is normal. Center is normal. Rate is 84. No acute ST changes. First troponin is 6, 2 hour is 10.8. Delta is still less than 6, so he does not rule in. His pain is resolved. His chest x-ray is normal. he asks for something for anxiety with discharge. he will follow up with cardiology. Lab Data : 02/04/22 21:00 02/04/22 21:00 Radiology Impressions Chest X-Ray 02/04/22 21:32 IMPRESSION: No acute findings. Laboratory Results WBC 10.5 10^3/uL (4.0-10.0) H 02/04/22 21:00 RBC 4.96 10^6/uL (4.1-5.3) 02/04/22 21:00 Hgb 15.6 g/dL (11.7-16.6) 02/04/22 21:00 Hct 44.6 % (42.0-52.0) 02/04/22 21:00 MCV 89.9 fl (80-94) 02/04/22 21:00 MCH 31.5 pg (28.0-34.0) 02/04/22 21:00 MCHC 35.0 g/dL (30.0-36.0) 02/04/22 21:00 RDW 12.1 % (12.1-15.1) 02/04/22 21:00 Plt Count 217 10^3/cmm (130-400) 02/04/22 21:00 MPV 10.1 fL (7.4-10.4) 02/04/22 21:00 Neut % (Auto) 53.8 % 02/04/22 21:00 Lymph % (Auto) 35.1 % 02/04/22 21:00 [place] % (Auto) 7.2 % 02/04/22 21:00 Eos % (Auto) 2.9 % 02/04/22 21:00 Baso % (Auto) 0.7 % 02/04/22 21:00 Neut # (Auto) 5.64 10^3/uL (1.8-7.7) 02/04/22 21:00 Lymph # (Auto) 3.7 10^3/uL (0.8-4.8) 02/04/22 21:00 [place] # (Auto) 0.8 10^3/uL (0.2-0.9) 02/04/22 21:00 Eos # (Auto) 0.3 10^3/uL (0.0-0.8) 02/04/22 21:00 Baso # (Auto) 0.1 10^3/uL (0.0-0.1) 02/04/22 21:00 Nucleated RBC % (auto) 0 % 02/04/22 21:00 Nucleated RBCs # 0.0 /100WBC 02/04/22 21:00 Sodium 138 mmol/L (136-145) 02/04/22 21:00 Potassium 3.4 mmol/L (3.5-5.1) L 02/04/22 21:00 Chloride 101 mmol/L (98-107) 02/04/22 21:00 Carbon Dioxide 24 mmol/L (22-29) 02/04/22 21:00 Anion Gap 16.4 (5-19) 02/04/22 21:00 BUN 12 mg/dL (6-20) 02/04/22 21:00 Creatinine 0.7 mg/dL (0.7-1.2) 02/04/22 21:00 GFR Calculation 118.9 mL/min (90-130) 02/04/22 21:00 Glucose 126 mg/dL (65-115) H 02/04/22 21:00 Calculated Osmolality 287 mOsm/kg (285-295) 02/04/22 21:00 Calcium 9.2 mg/dL (8.5-10.5) 02/04/22 21:00 Total Bilirubin 0.4 mg/dL (0.15-1.2) 02/04/22 21:00 AST 20 U/L (0-40) 02/04/22 21:00 ALT 29 U/L (0-41) 02/04/22 21:00 Alkaline Phosphatase 67 U/L (40-130) 02/04/22 21:00 Creatine Kinase 82 U/L (39-308) 02/04/22 21:00 Troponin T Baseline 6 ng/L (0-15) 02/04/22 21:00 Troponin T 120 Minute 10.87 ng/L (0-15) 02/04/22 22:50 Delta Troponin T 4.87 ABS# (0-10) 02/04/22 22:50 NT-Pro-B Natriuret Pep 21 pg/mL (0-125) 02/04/22 21:00 Total Protein 6.8 g/dL (6.6-8.7) 02/04/22 21:00 Albumin 4.4 g/dL (3.5-5.2) 02/04/22 21:00 Globulin 2.4 g/dL (1.3-4.6) 02/04/22 21:00 Discharge Plan Discharge Patient Disposition: Home Clinical Impression: Chest pain Condition: Stable Prescriptions: New Ativan 1 mg tablet 1 mg PO BID PRN (Reason: anxiety) Qty: 7 0RF No Action omega-3 fatty acids 1,000 mg capsule 1,000 mg PO DAILY fluticasone propionate [Children's Flonase Allergy Rlf] 50 mcg/actuation spray,suspension 1 spray intranasal DAILY Rx Instructions: administer into each nostril metoprolol tartrate 25 mg tablet 25 mg PO Q12H Qty: 180 3RF simvastatin 40 mg tablet 40 mg PO DAILY Qty: 90 3RF nitroglycerin 0.4 mg tablet, sublingual 0.4 mg sublingual Q5M PRN (Reason: Chest Pain) Qty: 25 1RF aspirin 81 mg Tablet,Delayed Release (Dr/Ec) 81 mg PO QPM Adult Multivitamin Gummies 200 mcg Tablet,Chewable 400 mcg PO DAILY meclizine 12.5 mg tablet 12.5 mg PO QAM PRN Discharge Orders: Discharge ED (Routine); Ordered 02/05/22 Ordered By: Varghese Martell Patient Instructions: Chest Pain (ED) Activity Restrictions/Additional Instructions: Return for any return of chest pain, shortness of breath, vomiting, any other concerning symptoms. Check your blood pressure twice daily, treat as directed by your doctor previously. Call your heart doctor on Monday. Let them know you were seen here. They may wish to see you or have you perform more testing. Coding Level of Care Code ED Javascript Developer for Nona Fwd Exam Comprehensive
[2022-02-04 23:52] LABS: Troponin 5 2HR Delta 4.87 ABS# (0-10)
[2022-02-05 01:21] VITALS: BP 102/64; PULSE 76; RESP 16; O2SAT 98
== END 2022-02-05 01:22 | disposition home or self-care (01) ==
PROVIDERS: Emergency Provider Emergency Medicine; PCP Family Medicine
DX: R07.9 Chest pain, unspecified (principal); Z79.82 Long term (current) use of aspirin; I25.10 Atherosclerotic heart disease of native coronary artery without angina pectoris; E78.5 Hyperlipidemia, unspecified; I25.2 Old myocardial infarction; Z87.891 Personal history of nicotine dependence
CPT/HCPCS: 71045; 80053; 82550; 83880; 84484; 85025; 93005; 99285

== ENCOUNTER → 2022-10-05 09:52 | Outpatient (BNVA) | payer BC, SELFPAY | PROVIDERS: PCP Family Medicine; Visit Provider Nurse Practitioner Family | DX: R39.9 Unspecified symptoms and signs involving the genitourinary system (principal); J06.9 Acute upper respiratory infection, unspecified | CPT/HCPCS: 81000 ==

== ENCOUNTER 2022-11-13 16:12 | Emergency (ER) | payer BC, SELFPAY ==
[2022-11-13 16:19] VITALS: BP 162/78; PULSE 91; RESP 14; TEMP 36.7; O2SAT 99; BMI 30.7
--- NOTE | 2022-11-13 16:27 | PC.NURSE ---
spoke with Dr Clark EKG shown and patient is ok to sit in waiting area
--- NOTE | 2022-11-13 16:28 | ECG_ITS ---
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 Measurements Intervals [place] Rate: 87 P: 56 OR: 127 QRS: 61 QRSD: 89 T: 12 QT: 350 QTc: 422 Interpretive Statements SINUS RHYTHM MODERATE ST DEPRESSION [0.05+ mV ST DEPRESSION] Compared to ECG 02/04/2022 22:54:15 ST (T wave) deviation now present Short OR interval no longer present Electronically Signed On 11-13-2022 23:10:16 CDT by Darrell Palomares M.D. [email or web address]/store/[id number]
--- NOTE | 2022-11-13 16:48 | ED_ITS ---
HPI - Chest Pain General: Chief Complaint: Chest Pain Stated Complaint: chest pains Time Seen by Provider: 11/13/22 16:47 History of Present Illness: This 52-year-old male presents to the ER for evaluation of chest pain that he had prior to presentation. He had just fixed a corner post and was putting stuff in his truck when he had the first chest pain. It lasted for a brief seco nd and resolved spontaneously. After a short while, he had another episode. Again, it lasted for a second and went away. When he had it the third time (which also lasted for a second, Patient took 3 baby aspirins, took 2 nitroglycerin and came to the ER for evaluation. Since being here in the ER, he has not had any such experience. Patient has a history of coronary artery disease with stent placement. Initial EKG reveals normal sinus rhythm with no acute ischemic changes. He is clinically stable. Review of Systems Const: Denies: chills, body aches or change in appetite Eyes: Denies: change in vision or eye discharge ENMT: Denies: throat pain, dental pain or nasal discharge Card: Denies: chest pain or lightheadedness : Denies: dysuria Musc: Denies: neck pain or back pain Neuro: Denies: headache(s) or weakness in extremities Psych: Denies: depression Omar/Lymph: Denies: easy bruising All/Imm: Denies: urticaria, tongue swelling or facial swelling PFSH ED PFSH: Medical History CAD in [place] artery Chronic vertigo Hyperlipidemia NSTEMI (non-ST elevated myocardial infarction) Seasonal allergies Surgical History History of bilateral inguinal hernia repair History of local excision of skin lesion R shoulder Family History Father Lung disease Secondary to asbestos exposure Mother Cancer Small cell lung cancer Social History Smoking and tobacco status: former smoker Alcohol intake: current Alcohol intake frequency: holidays/special occasions only Substance/Drug Use: never Marital status: Physical Exam Const: COMMON NORMALS: no acute distress, patient oriented x3, no limitations and alert HENMT: COMMON NORMALS: normocephalic HEAD & SCALP: normocephalic Eye: COMMON NORMALS: EOMs intact bilaterally Neck/C-Spine: COMMON NORMALS: full ROM and supple Chest: COMMONS NORMALS: normal inspection of the chest Resp: COMMON NORMALS: normal respiratory effort, No retractions, No use of accessory muscles and clear to auscultation bilaterally AUSCULTATION: clear to auscultation bilaterally Cardio: COMMON NORMALS: regular rate, regular rhythm and No murmurs present (Cardio) RATE: regular rate RHYTHM: regular rhythm GI: COMMON NORMALS: Normal to inspection, nondistended, normoactive bowel [place] nds present and non-tender : COMMON NORMALS: Yes no CVA tenderness BLADDER/KIDNEY EXAM: Yes no CVA tenderness Back/Pelvis: COMMON NORMALS: no CVA tenderness and no thoracic nor lumbar tenderness Extremity: GENERAL: Yes normal exam except as noted Neuro: COMMON NORMALS: patient oriented x3 and no focal motor deficits SENSORIUM/ORIENTATION: Yes alert Psych: COMMON NORMALS: mental status grossly normal and cooperative Course Vital Signs: Vital signs: Vital Signs Temperature 98.0 F 11/13/22 16:19 Pulse Rate 80 11/13/22 17:04 Respiratory Rate 16 11/13/22 17:04 Blood Pressure 142/75 11/13/22 17:04 Pulse Oximetry 97 11/13/22 17:04 Oxygen Delivery Me thod Room Air 11/13/22 17:04 MDM - Chest Pain Medical Decision Making Medical decision making: This 52-year-old man with a prior history of coronary artery disease presents with intermittent chest pain. He experienced 3 episodes that lasted for about a second each. Clinical exam is unremarkable. Initial troponin and repeat troponin are both negative with a delta of 0. Chest x-ray is negative for any acute intracranial process and EKG shows no acute ischemic changes. On reevaluation, patient admitted that he has a background history of anxiety, has been under a lot of stress lately and his anxiety has been heightened ever since he had the SC. At this time, there is no indication to admit him. He was reassured and advised to follow-up with his primary care physician. However, if he develops chest pain that is constant and lasts for 20 minutes or more, he should return immediately for evaluation. He verbalized understanding and agrees with the plan. Lab Data 11/13/22 16:49 11/13/22 16:49 Radiology Impressions Chest X-Ray 11/13/22 16:56 IMPRESSION: No acute findings. Laboratory Results WBC 9.6 10^3/uL (4.0-10.0) 11/13/22 16:49 RBC 5.21 10^6/uL (4.1-5.3) 11/13/22 16:49 Hgb 16.1 g/dL (11.7-16.6) 11/13/22 16:49 Hct 47.1 % (42.0-52.0) 11/13/22 16:49 MCV 90.4 fl (80-94) 11/13/22 16:49 MCH 30.9 pg (28.0-34.0) 11/13/22 16:49 MCHC 34.2 g/dL (30.0-36.0) 11/13/22 16:49 RDW 12.5 % (12.1-15.1) 11/13/22 16:49 Plt Count 221 10^3/cmm (130-400) 11/13/22 16:49 MPV 9.7 fL (7.4-10.4) 11/13/22 16:49 Neut % (Auto) 51.1 % 11/13/22 16:49 Lymph % (Auto) 38.8 % 11/13/22 16:49 [place] % (Auto) 6.8 % 11/13/22 16:49 Eos % (Auto) 2.3 % 11/13/22 16:49 Baso % (Auto) 0.7 % 11/13/22 16:49 Neut # (Auto) 4.89 10^3/uL (1.8-7.7) 11/13/22 16:49 Lymph # (Auto) 3.7 10^3/uL (0.8-4.8) 11/13/22 16:49 [place] # (Auto) 0.7 10^3/uL (0.2-0.9) 11/13/22 16:49 Eos # (Auto) 0.2 10^3/uL (0.0-0.8) 11/13/22 16:49 Baso # (Auto) 0.1 10^3/uL (0.0-0.1) 11/13/22 16:49 Nucleated RBC % (auto) 0 % 11/13/22 16:49 Nucleated RBCs # 0.0 /100WBC 11/13/22 16:49 Sodium 140 mmol/L (136-145) 11/13/22 16:49 Potassium 3.9 mmol/L (3.5-5.1) 11/13/22 16:49 Chloride 103 mmol/L (98-107) 11/13/22 16:49 Carbon Dioxide 24 mmol/L (22-29) 11/13/22 16:49 Anion Gap 16.9 (5-19) 11/13/22 16:49 BUN 12 mg/dL (6-20) 11/13/22 16:49 Creatinine 0.6 mg/dL (0.7-1.2) L 11/13/22 16:49 GFR Calculation 141.5 mL/min (90-130) H 11/13/22 16:49 Glucose 103 mg/dL (65-115) 11/13/22 16:49 Calculated Osmolality 290 mOsm/kg (285-295) 11/13/22 16:49 Calcium 9.9 mg/dL (8.5-10.5) 11/13/22 16:49 Total Bilirubin 0.4 mg/dL (0.15-1.2) 11/13/22 16:49 AST 23 U/L (0-40) 11/13/22 16:49 ALT 33 U/L (0-41) 11/13/22 16:49 Alkaline Phosphatase 68 U/L (40-130) 11/13/22 16:49 Troponin T Baseline 6 ng/L (0-15) 11/13/22 16:49 Troponin T 120 Minute 6.00 ng/L (0-15) 11/13/22 18:27 Total Protein 7.2 g/dL (6.6-8.7) 11/13/22 16:49 Albumin 4.7 g/dL (3.5-5.2) 11/13/22 16:49 Globulin 2.5 g/dL (1.3-4.6) 11/13/22 16:49 EKG Data EKG 1: Interpretation: Sinus rhythm, rate of 87, normal axis, normal intervals, normal QRS, no STEMI. Discharge Plan Discharge Patient Disposition: Home Clinical Impression: Atypical chest pain Condition: Stable Prescriptions: No Action omega-3 fatty acids 1,000 mg capsule 1,000 mg PO DAILY fluticasone propionate [Children's Flonase Allergy Rlf] 50 mcg/actuation spray,suspension 1 spray intranasal DAILY Rx Instructions: administer into each nostril buspirone 5 mg tablet 5 mg PO TID Qty: 90 0RF Viibryd 10 mg tablet 5 mg PO DAILY Qty: 15 5RF Rx Instructions: must administer with a meal/food simvastatin 40 mg tablet 40 mg PO DAILY Qty: 90 3RF nitroglycerin 0.4 mg tablet, sublingual 0.4 mg sublingual Q5M PRN (Reason: Chest Pain) Qty: 25 1RF metoprolol tartrate 25 mg tablet 25 mg PO Q12H Qty: 180 3RF aspirin 81 mg Tablet,Delayed Release (Dr/Ec) 81 mg PO QPM Adult Multivitamin Gummies 200 mcg Tablet,Chewable 400 mcg PO DAILY meclizine 12.5 mg tablet 12.5 mg PO QAM PRN Discharge Orders: Discharge ED (Routine); Ordered 11/13/22 Ordered By: Jean-Claude Eason Referrals: Susan Maguire DO [Primary Care Provider] - Discharge Diet: Usual diet Discharge Activity: Resume usual activity Patient Instructions: Opioid Safety, Pain Management Activity Restrictions/Additional Instructions: Continue taking your usual home medications. Follow-up with your primary care physician in 2 to 3 days for reevaluation. Return if you develop chest pain that is constant and lasts for 20 minutes or more. Coding Level of Care Code ED [employer] for Nona Pierre
--- NOTE | 2022-11-13 16:56 | XRR_ITS ---
PROCEDURE INFORMATION: Exam: XR Chest Exam date and time: 11/13/2022 5:05 PM Age: 52 years old Clinical indication: Pain; Chest pressure; Additional info: Chest pain TECHNIQUE: Imaging protocol: Radiologic exam of the chest. Views: 1 view. COMPARISON: CR (CHEST, ) 02/04/2022 9:35 PM FINDINGS: Lungs: Unremarkable. No consolidation. Pleural spaces: Unremarkable. No pleural effusion. No pneumothorax. Heart/Mediastinum: Unremarkable. No cardiomegaly. Bones/joints: Unremarkable. XR/XR chest 1V portable [id number] IMPRESSION: No acute findings.
[2022-11-13 17:04] VITALS: BP 142/75; PULSE 80; RESP 16; O2SAT 97
[2022-11-13 17:06] LABS: Basophils # 0.1 10^3/uL (0.0-0.1); Basophils % 0.7 %; Eosinophils # 0.2 10^3/uL (0.0-0.8); Eosinophils % 2.3 %; Hematocrit 47.1 % (42.0-52.0); Hemoglobin 16.1 g/dL (11.7-16.6); Lymphocytes # 3.7 10^3/uL (0.8-4.8); Lymphocytes % 38.8 %; Mean Corpuscular HGB Conc 34.2 g/dL (30.0-36.0); Mean Corpuscular Hemoglobin 30.9 pg (28.0-34.0); Mean Corpuscular Volume 90.4 fl (80-94); Mean Platelet Volume 9.7 fL (7.4-10.4); Monocytes # 0.7 10^3/uL (0.2-0.9); Monocytes % 6.8 %; Neutrophils # 4.89 10^3/uL (1.8-7.7); Neutrophils % 51.1 %; Nucleated Red Blood Cells % 0 %; Platelet Count 221 10^3/cmm (130-400); Red Blood Count 5.21 10^6/uL (4.1-5.3); Red Cell Distribution Width 12.5 % (12.1-15.1); White Blood Count 9.6 10^3/uL (4.0-10.0)
[2022-11-13 17:17] LABS: Troponin(5th) Baseline 6 ng/L (0-15)
[2022-11-13 17:23] LABS: Alanine Aminotransferase 33 U/L (0-41); Albumin Level 4.7 g/dL (3.5-5.2); Alkaline Phosphatase 68 U/L (40-130); Aspartate Amino Transferase 23 U/L (0-40); Blood Urea Nitrogen 12 mg/dL (6-20); Calcium 9.9 mg/dL (8.5-10.5); Carbon Dioxide 24 mmol/L (22-29); Chloride 103 mmol/L (98-107); Globulin 2.5 g/dL (1.3-4.6); Glomerular Filtration Rate 141.5 mL/min (90-130); Glucose 103 mg/dL (65-115); Osmolality Calculated 290 mOsm/kg (285-295); Sodium 140 mmol/L (136-145); Total Bilirubin 0.4 mg/dL (0.15-1.2); Total Protein 7.2 g/dL (6.6-8.7)
[2022-11-13 17:30] LABS: Anion Gap 16.9 (5-19); Potassium 3.9 mmol/L (3.5-5.1)
[2022-11-13 19:00] VITALS: BP 128/65; PULSE 75; RESP 22; O2SAT 99
[2022-11-13 19:36] VITALS: BP 119/65; PULSE 69; RESP 25; O2SAT 97
[2022-11-13 20:04] LABS: Troponin 5 2HR Delta 0 ABS# (0-10)
== END 2022-11-13 19:49 | disposition home or self-care (01) ==
PROVIDERS: Emergency Provider Family Medicine; PCP Family Medicine
DX: R07.89 Other chest pain (principal); I25.10 Atherosclerotic heart disease of native coronary artery without angina pectoris; I10 Essential (primary) hypertension; Z95.5 Presence of coronary angioplasty implant and graft; Z87.891 Personal history of nicotine dependence
CPT/HCPCS: 71045; 80053; 84484; 85025; 93005; 99285